=== PATIENT | male | born 1945 | race Caucasian/White ===

== ENCOUNTER 2017-10-09 20:58 | Observation (INO) | payer MEDICARE ==
[2017-10-09] MEDS ORDERED: Nitrostat 0.4 MG (ED) SL ONE ×2 (21:16→21:23)
[2017-10-09] MEDS ORDERED: Sodium Chloride 0.9% 1000 ML 1,000 ML IV STA (21:16)
[2017-10-09] MEDS ORDERED: Sodium Chloride 0.9% 1000 ML 1,000 ML ONE ×2 (21:19→21:23)
--- NOTE | 2017-10-09 21:19 | ERPHSYRPT ---
- History of Present Illness Time Seen by Provider: 10/09/17 21:08 Source: patient Exam Limitations: no limitations Physician History: FOR THE PAST 12 HOURS PT HAS HAD SHORTNESS OF AIR; DENIES CHEST PAIN, ABDOMINAL PAIN, NAUSEA, VOMITING, FEVER. Allergies/Adverse Reactions: No Known Drug Allergies Allergy (Verified 10/09/17 22:03) Home Medications: Budesonide/Formoterol Fumarate [Symbicort 160-4.5 Mcg Inhaler] 2 inh .ROUTE BID 10/09/17 [History] Clonazepam [Clonazepam] 1 mg PO TID PRN 10/09/17 [History] - Review of Systems Constitutional: No Fever Respiratory: Dyspnea Cardiac: No Chest Pain Abdominal/Gastrointestinal: No Abdominal Pain, No Nausea, No Vomiting All Other Systems: Reviewed and Negative - Nursing Vital Signs Nursing Vital Signs: Initial Vital Signs Temperature 99.2 F 10/09/17 21:28 Pulse Rate 130 H 10/09/17 21:28 Respiratory Rate 30 H 10/09/17 21:28 Blood Pressure 154/102 10/09/17 21:28 O2 Sat by Pulse Oximetry 88 L 10/09/17 21:28 Pain Scale Pain Intensity 0 - Physical Exam General Appearance: alert Eye Exam: PERRL/EOMI Ears, Nose, Throat Exam: pharyngeal erythema Neck Exam: normal inspection Respiratory Exam: diminished breath sounds, wheezing Cardiovascular/Chest Exam: tachycardia Abdominal/Gastrointestinal Exam: soft, normal bowel sounds Extremity Exam: no pedal edema Peripheral Pulses Exam: dorsalis-pedis (R): 2+, dorsalis-pedis (L): 2+ Neurologic Exam: alert, cooperative Skin Exam: warm, dry SpO2 Interpretation: hypoxic SpO2: 88 Oxygen Delivery: Room Air - Course Nursing assessment & vital signs reviewed: Yes EKG Interpreted by Me: RATE ([id number]), Sinus Tach, NORMAL AXIS, Non-specific ST Changes - Radiology Exams Chest X-ray Interpretation: Interpreted by me (INFILTRATE LEFT LUNG) - CT Exams Chest CT Interpretation: Tele-radiologist Report (NO CENTRAL PULMONARY EMBOLUS. PERIBRONCHIAL THICKENING AND CENTRILOBULAR NODULARITY IN THE SUPERIOR SEGMENT OF THE LEFT LOWER LOBE COMPATIVLE WITH INFECTIOUS/INFLAMMATORY PROCESS.) Ordered Tests: Active Orders 24 hr Category Date Time Status Assistant Store Leader STAT Care 10/09/17 21:17 Active Clean Catch Urine Specimen STAT Care 10/09/17 21:16 Active EKG-ER Only STAT Care 10/09/17 21:16 Active IV Insertion STAT Care 10/09/17 21:16 Active Oxygen-ED Only NASAL CANNULA 4 lpm Care 10/09/17 21:16 Active Pulse Oximetry (ED) STAT Care 10/09/17 21:16 Active CHEST 1 VIEW (PORTABLE) Stat Exams 10/09/17 21:17 Taken CHEST WITH CONTRAST [CT] Stat Exams 10/09/17 22:30 Taken ABG [ARTERIAL BLOOD GASES] Stat Lab 10/09/17 22:40 Completed AMYLASE Stat Lab 10/09/17 21:29 Completed ARTERIAL BLOOD GASES Urgent Lab 10/09/17 21:16 Completed BLOOD CULTURE Stat Lab 10/09/17 21:33 Received CBC W DIFF Stat Lab 10/09/17 21:29 Completed CMP Stat Lab 10/09/17 21:29 Completed CULTURE, THROAT Stat Lab 10/09/17 21:50 Received CULTURE,SPUTUM Stat Lab 10/09/17 22:33 Uncollected CULTURE,URINE Stat Lab 10/09/17 23:06 Received D-DIMER QUANTITATION Stat Lab 10/09/17 21:29 Completed LIPASE Stat Lab 10/09/17 21:29 Completed Lactic Acid Stat Lab 10/09/17 21:26 Completed MAGNESIUM Stat Lab 10/09/17 21:29 Completed Manual Differential NC Stat Lab 10/09/17 21:29 Completed NT PRO BNP Stat Lab 10/09/17 21:29 Completed STREP SCREEN-BETA A Stat Lab 10/09/17 21:50 Completed TROPONIN Q3H Lab 10/09/17 21:29 Completed TROPONIN Q3H Lab 10/10/17 01:03 Completed TROPONIN Q3H Lab 10/10/17 03:30 Ordered TROPONIN Q3H Lab 10/10/17 06:30 Ordered TROPONIN Q3H Lab 10/10/17 09:30 Ordered UA W/ MICROSCOPIC Stat Lab 10/09/17 23:06 Completed BiPap/CPAP Assessment STAT RT 10/09/17 21:30 Active Medication Summary Discontinued Medications Generic Name Dose Route Start Last Admin Trade Name Freq PRN Reason Stop Dose Admin Sodium Chloride 1,000 mls @ 999 mls/hr 10/09/17 21:16 10/09/17 21:21 Sodium Chloride 0.9% 1000 Ml IV 10/09/17 22:16 999 mls/hr .Q1H1M STA Administration Sodium Chloride Confirm 10/09/17 21:19 Sodium Chloride 0.9% 1000 Ml Administered 10/09/17 21:20 Dose 1,000 mls @ ud .ROUTE .STK-MED ONE Sodium Chloride Confirm 10/09/17 21:23 Sodium Chloride 0.9% 1000 Ml Administered 10/09/17 21:24 Dose 1,000 mls @ ud .ROUTE .STK-MED ONE Ceftriaxone Sodium/Dextrose 1 g in 50 mls @ 100 mls/hr 10/09/17 22:32 23:20 Rocephin 1 Gm-D5w 50 Ml Bag IV 10/09/17 23:01 100 mls/hr STAT STA Administration Azithromycin 500 mg in 250 mls @ 250 mls/hr 10/09/17 22:32 10/10/17 00:03 Zithromax 500 Mg/ 250 Ml Nacl Premix IV 10/09/17 23:31 250 mls/hr STAT STA Administration Lactated Ringer's 1,000 mls @ 999 mls/hr 10/09/17 23:16 10/10/17 00:03 Lactated Ringers IV 10/10/17 00:16 999 mls/hr .Q1H1M ONE Administration Azithromycin Confirm 10/09/17 23:14 Zithromax 500 Mg/ 250 Ml Nacl Premix Administered 10/09/17 23:15 Dose 500 mg in 250 mls @ ud IV .STK-MED ONE Ceftriaxone Sodium/Dextrose Confirm 10/09/17 23:14 Rocephin 1 Gm-D5w 50 Ml Bag Administered 10/09/17 23:15 Dose 1 g in 50 mls @ ud IV .STK-MED ONE Lactated Ringer's Confirm 10/10/17 00:01 Lactated Ringers Administered 10/10/17 00:02 Dose 1,000 mls @ ud IV .STK-MED ONE Levalbuterol HCl 1.25 mg 10/10/17 01:56 Xopenex 1.25 Mg/0.5 Ml Ud Nebule IH 10/10/17 01:57 STAT ONE Nitroglycerin 0.4 mg 10/09/17 21:16 10/09/17 21:26 Nitrostat 0.4 Mg (Ed) SL 10/09/17 21:17 0.4 mg STAT ONE Administration Nitroglycerin Confirm 10/09/17 21:23 Nitrostat 0.4 Mg (Ed) Administered 10/09/17 21:24 Dose 0.4 mg SL .STK-MED ONE Lab/Rad Data: Laboratory Result Diagrams 10/09/17 21:29 10/09/17 21:29 Laboratory Results 10/10/17 10/10/17 10/09/17 Range/Units 01:03 00:01 23:06 WBC (4.0-10.5) K/mm3 RBC (4.1-5.6) M/mm3 Hgb (12.5-18.0) gm/dl Hct (42-50) % MCV (78-100) fl MCH (26-32) pg MCHC (32-36) g/dl RDW (11.5-14.0) % Plt Count (150-450) K/mm3 MPV (6-9.5) fl Segmented Neutrophils (36.-66.) % Band Neutrophils (0.0-2.0) % Lymphocytes (Manual) (24-44) % Monocytes (Manual) (0.0-12.0) % Differential Comment Atypical Lymphocytes % Platelet Estimate (NORMAL) D-Dimer (0-500) ng/mL Puncture Site LEFT RADIAL pCO2 82 H* (35-45) mmHg pO2 183 H* (75-100) mmHg Base Excess 12.9 H (-2.0-2.0) O2 Saturation 94.8 (94-100) g/dF ABG pH 7.32 L (7.35-7.45) ABG HCO3 42.2 H* (22-28) ABG O2 Sat (Measured) 96.6 (95-100) % Wilmer Test YES A-a Gradient 71 a/A Ratio 0.72 Hemoglobin 11.9 Carboxyhemoglobin 1.3 (0.0-6.9) % THgb Methemoglobin 0.6 L (1.4-1.5) % Potassium 4.3 (3.5-5.1) Temperature 37.0 C POC O2 Flow Rate 50 % Sodium (137-145) mmol/L Chloride (98-107) mEq/L Carbon Dioxide (22-30) mmol/L Anion Gap (5-15) MEQ/L BUN (9-20) mg/dl Creatinine (0.66-1.25) mg/dl Estimated GFR ML/MIN Glucose (74-106) mg/dL Lactic Acid (0.4-2.0) Calcium (8.4-10.2) mg/dL Magnesium (1.6-2.3) mg/dL Total Bilirubin (0.2-1.3) mg/d? AST (17-59) U/L ALT (0-50) U/L Alkaline Phosphatase (38-126) U/L Troponin I < 0.012 (0.000-0.034) ng/ml NT-Pro-B Natriuret Pep (0-900) pg/ml Serum Total Protein (6.3-8.2) mg/dl Albumin (3.5-5.0) g/dl Amylase (30-110) U/L Lipase (23-300) U/L Ur Collection Type VOID Urine Color YELLOW (YELLOW) Urine Appearance CLEAR (CLEAR) Urine pH 5.0 (5-6) Ur Specific [place] 1.025 (1.005-1.025) Urine Protein NEGATIVE (Negative) Urine Ketones NEGATIVE (NEGATIVE) Urine Blood TRACE NON-HEM (0-5) Bakari/ul Urine Nitrite NEGATIVE (NEGATIVE) Urine Bilirubin NEGATIVE (NEGATIVE) Urine Urobilinogen NORMAL (0-1) mg/dL Ur Leukocyte Esterase NEGATIVE (NEGATIVE) Urine Microscopic RBC 5-10 (0-2) /HPF Urine Microscopic WBC 2-5 (0-5) /HPF Ur Epithelial Cells MODERATE (FEW) /HPF Urine Bacteria MODERATE (NEGATIVE) /HPF Urine Mucus MANY (NEGATIVE) /HPF Urine Culture Reflexed YES (NO) Urine Glucose NEGATIVE (NEGATIVE) mg/dL Influenza Type A Ag (NEGATIVE) Influenza Type B Ag (NEGATIVE) RSV (PCR) (Negative) Streptococcus Screen (Negative) Specimen Received 10/09/17 [id number] 10/09/17 10/09/17 10/09/17 Range/Units 21:50 21:50 21:29 WBC (4.0-10.5) K/mm3 RBC (4.1-5.6) M/mm3 Hgb (12.5-18.0) gm/dl Hct (42-50) % MCV (78-100) fl MCH (26-32) pg MCHC (32-36) g/dl RDW (11.5-14.0) % Plt Count (150-450) K/mm3 MPV (6-9.5) fl Segmented Neutrophils (36.-66.) % Band Neutrophils (0.0-2.0) % Lymphocytes (Manual) (24-44) % Monocytes (Manual) (0.0-12.0) % Differential Comment Atypical Lymphocytes % Platelet Estimate (NORMAL) D-Dimer (0-500) ng/mL Puncture Site pCO2 (35-45) mmHg pO2 (75-100) mmHg Base Excess (-2.0-2.0) O2 Saturation (94-100) g/dF ABG pH (7.35-7.45) ABG HCO3 (22-28) ABG O2 Sat (Measured) (95-100) % Wilmer Test A-a Gradient a/A Ratio Hemoglobin Carboxyhemoglobin (0.0-6.9) % THgb Methemoglobin (1.4-1.5) % Potassium (3.5-5.1) Temperature C POC O2 Flow Rate % Sodium (137-145) mmol/L Chloride (98-107) mEq/L Carbon Dioxide (22-30) mmol/L Anion Gap (5-15) MEQ/L BUN (9-20) mg/dl Creatinine (0.66-1.25) mg/dl Estimated GFR ML/MIN Glucose (74-106) mg/dL Lactic Acid (0.4-2.0) Calcium (8.4-10.2) mg/dL Magnesium (1.6-2.3) mg/dL Total Bilirubin (0.2-1.3) mg/d? AST (17-59) U/L ALT (0-50) U/L Alkaline Phosphatase (38-126) U/L Troponin I < 0.012 (0.000-0.034) ng/ml NT-Pro-B Natriuret Pep (0-900) pg/ml Serum Total Protein (6.3-8.2) mg/dl Albumin (3.5-5.0) g/dl Amylase (30-110) U/L Lipase (23-300) U/L Ur Collection Type Urine Color (YELLOW) Urine Appearance (CLEAR) Urine pH (5-6) Ur Specific [place] (1.005-1.025) Urine Protein (Negative) Urine Ketones (NEGATIVE) Urine Blood (0-5) Bakari/ul Urine Nitrite (NEGATIVE) Urine Bilirubin (NEGATIVE) Urine Urobilinogen (0-1) mg/dL Ur Leukocyte Esterase (NEGATIVE) Urine Microscopic RBC (0-2) /HPF Urine Microscopic WBC (0-5) /HPF Ur Epithelial Cells (FEW) /HPF Urine Bacteria (NEGATIVE) /HPF Urine Mucus (NEGATIVE) /HPF Urine Culture Reflexed (NO) Urine Glucose (NEGATIVE) mg/dL Influenza Type A Ag NEGATIVE (NEGATIVE) Influenza Type B Ag NEGATIVE (NEGATIVE) RSV (PCR) NEGATIVE (Negative) Streptococcus Screen NEGATIVE (Negative) Specimen Received 10/09/17 10/09/17 10/09/17 Range/Units 21:29 21:29 21:29 WBC 18.6 H (4.0-10.5) K/mm3 RBC 4.23 (4.1-5.6) M/mm3 Hgb 13.8 (12.5-18.0) gm/dl Hct 43.2 (42-50) % MCV 102.1 H (78-100) fl MCH 32.6 H (26-32) pg MCHC 31.9 L (32-36) g/dl RDW 14.1 H (11.5-14.0) % Plt Count 237 (150-450) K/mm3 MPV 10.6 H (6-9.5) fl Segmented Neutrophils 68 H (36.-66.) % Band Neutrophils 2 (0.0-2.0) % Lymphocytes (Manual) 5 L (24-44) % Monocytes (Manual) 13 H (0.0-12.0) % Differential Comment NORMAL Atypical Lymphocytes 12 % Platelet Estimate NORMAL (NORMAL) D-Dimer 852.44 H* (0-500) ng/mL Puncture Site pCO2 (35-45) mmHg pO2 (75-100) mmHg Base Excess (-2.0-2.0) O2 Saturation (94-100) g/dF ABG pH (7.35-7.45) ABG HCO3 (22-28) ABG O2 Sat (Measured) (95-100) % Wilmer Test A-a Gradient a/A Ratio Hemoglobin Carboxyhemoglobin (0.0-6.9) % THgb Methemoglobin (1.4-1.5) % Potassium 4.2 (3.5-5.1) Temperature C POC O2 Flow Rate % Sodium 143 (137-145) mmol/L Chloride 96 L (98-107) mEq/L Carbon Dioxide 38 H (22-30) mmol/L Anion Gap 13.2 (5-15) MEQ/L BUN 18 (9-20) mg/dl Creatinine 0.70 (0.66-1.25) mg/dl Estimated GFR > 60 ML/MIN Glucose 101 (74-106) mg/dL Lactic Acid (0.4-2.0) Calcium 9.6 (8.4-10.2) mg/dL Magnesium 2.1 (1.6-2.3) mg/dL Total Bilirubin 0.40 (0.2-1.3) mg/d? AST 18 (17-59) U/L ALT 19 (0-50) U/L Alkaline Phosphatase 83 (38-126) U/L Troponin I (0.000-0.034) ng/ml NT-Pro-B Natriuret Pep 68.3 (0-900) pg/ml Serum Total Protein 6.9 (6.3-8.2) mg/dl Albumin 3.9 (3.5-5.0) g/dl Amylase 55 (30-110) U/L Lipase 20 L (23-300) U/L Ur Collection Type Urine Color (YELLOW) Urine Appearance (CLEAR) Urine pH (5-6) Ur Specific [place] (1.005-1.025) Urine Protein (Negative) Urine Ketones (NEGATIVE) Urine Blood (0-5) Bakari/ul Urine Nitrite (NEGATIVE) Urine Bilirubin (NEGATIVE) Urine Urobilinogen (0-1) mg/dL Ur Leukocyte Esterase (NEGATIVE) Urine Microscopic RBC (0-2) /HPF Urine Microscopic WBC (0-5) /HPF Ur Epithelial Cells (FEW) /HPF Urine Bacteria (NEGATIVE) /HPF Urine Mucus (NEGATIVE) /HPF Urine Culture Reflexed (NO) Urine Glucose (NEGATIVE) mg/dL Influenza Type A Ag (NEGATIVE) Influenza Type B Ag (NEGATIVE) RSV (PCR) (Negative) Streptococcus Screen (Negative) Specimen Received 10/09/17 10/09/17 Range/Units 21:26 21:16 WBC (4.0-10.5) K/mm3 RBC (4.1-5.6) M/mm3 Hgb (12.5-18.0) gm/dl Hct (42-50) % MCV (78-100) fl MCH (26-32) pg MCHC (32-36) g/dl RDW (11.5-14.0) % Plt Count (150-450) K/mm3 MPV (6-9.5) fl Segmented Neutrophils (36.-66.) % Band Neutrophils (0.0-2.0) % Lymphocytes (Manual) (24-44) % Monocytes (Manual) (0.0-12.0) % Differential Comment Atypical Lymphocytes % Platelet Estimate (NORMAL) D-Dimer (0-500) ng/mL Puncture Site RIGHT RADIAL pCO2 88 H* (35-45) mmHg pO2 84 (75-100) mmHg Base Excess 14.0 H (-2.0-2.0) O2 Saturation 92.8 L (94-100) g/dF ABG pH 7.31 L (7.35-7.45) ABG HCO3 44.3 H* (22-28) ABG O2 Sat (Measured) 95.5 (95-100) % Wilmer Test YES A-a Gradient 91 a/A Ratio 0.48 Hemoglobin 13.0 Carboxyhemoglobin 2.4 (0.0-6.9) % THgb Methemoglobin 0.4 L (1.4-1.5) % Potassium 4.0 (3.5-5.1) Temperature 37.0 C POC O2 Flow Rate 40 % Sodium (137-145) mmol/L Chloride (98-107) mEq/L Carbon Dioxide (22-30) mmol/L Anion Gap (5-15) MEQ/L BUN (9-20) mg/dl Creatinine (0.66-1.25) mg/dl Estimated GFR ML/MIN Glucose (74-106) mg/dL Lactic Acid 0.6 (0.4-2.0) Calcium (8.4-10.2) mg/dL Magnesium (1.6-2.3) mg/dL Total Bilirubin (0.2-1.3) mg/d? AST (17-59) U/L ALT (0-50) U/L Alkaline Phosphatase (38-126) U/L Troponin I (0.000-0.034) ng/ml NT-Pro-B Natriuret Pep (0-900) pg/ml Serum Total Protein (6.3-8.2) mg/dl Albumin (3.5-5.0) g/dl Amylase (30-110) U/L Lipase (23-300) U/L Ur Collection Type Urine Color (YELLOW) Urine Appearance (CLEAR) Urine pH (5-6) Ur Specific [place] (1.005-1.025) Urine Protein (Negative) Urine Ketones (NEGATIVE) Urine Blood (0-5) Bakari/ul Urine Nitrite (NEGATIVE) Urine Bilirubin (NEGATIVE) Urine Urobilinogen (0-1) mg/dL Ur Leukocyte Esterase (NEGATIVE) Urine Microscopic RBC (0-2) /HPF Urine Microscopic WBC (0-5) /HPF Ur Epithelial Cells (FEW) /HPF Urine Bacteria (NEGATIVE) /HPF Urine Mucus (NEGATIVE) /HPF Urine Culture Reflexed (NO) Urine Glucose (NEGATIVE) mg/dL Influenza Type A Ag (NEGATIVE) Influenza Type B Ag (NEGATIVE) RSV (PCR) (Negative) Streptococcus Screen (Negative) Specimen Received - Progress Discussed with Dr.: Other (SPOKE WITH DR HERRERA([id number]) - OBS ICU.) - Departure Time of Disposition: 02:10 Departure Disposition: Observation Clinical Impression: ACUTE RESPIRATORY FAILURE, LEFT LOWER LOBE PNEUMONIA, UTI Condition: Stable Critical Care Time: Yes Critical Care Time(excluding separately billable procedures): 30-74 minutes Referrals: MADDIE SILVA MD [Primary Care Provider] -
[2017-10-09 21:36] LABS: A-aADO2 91; ARTERIAL BLD GAS O2 SATURATION 95.5 % (95-100); ARTERIAL BLOOD GAS FIO2 40 %; ARTERIAL BLOOD GAS PO2 84 mmHg (75-100); ARTERIAL BLOOD GAS pH 7.31 (7.35-7.45); CARBOXYHEMOGLOBIN 2.4 % THgb (0.0-6.9); HCO3- 44.3 (22-28); HGB O2 SAT 92.8 g/dF (94-100); Methhemoglobin 0.4 % (1.4-1.5); paO2 pAO1 0.48
[2017-10-09 21:37] LABS: ABG SITE RIGHT RADIAL; ALLEN TEST OK? YES; ARTERIAL BLOOD GAS PCO2 88 mmHg (35-45)
[2017-10-09 22:00] LABS: Hematocrit 43.2 % (42-50); Hemoglobin 13.8 gm/dl (12.5-18.0); Mean Cell Volume 102.1 fl (78-100); Mean Corpuscular Hemoglobin 32.6 pg (26-32); Mean Corpuscular Hgb Concent. 31.9 g/dl (32-36); Mean Platelet Volume 10.6 fl (6-9.5); Platelet Count 237 K/mm3 (150-450); Red Blood Count 4.23 M/mm3 (4.1-5.6); Red Cell Distribution Width 14.1 % (11.5-14.0); White Blood Count 18.6 K/mm3 (4.0-10.5)
[2017-10-09 22:04] LABS: ALBUMIN 3.9 g/dl (3.5-5.0); ALKALINE PHOSPHATASE 83 U/L (38-126); AMYLASE 55 U/L (30-110); BLOOD UREA NITROGEN 18 mg/dl (9-20); CHLORIDE 96 mEq/L (98-107); Calcium 9.6 mg/dL (8.4-10.2); Glucose 101 mg/dL (74-106); LIPASE 20 U/L (23-300); Potassium 4.2 mmol/L (3.5-5.1); SGOT/AST 18 U/L (17-59); SGPT/ALT 19 U/L (0-50); SODIUM 143 mmol/L (137-145); Total Protein 6.9 mg/dl (6.3-8.2)
[2017-10-09 22:10] LABS: Carbon Dioxide 38 mmol/L (22-30)
[2017-10-09 22:13] LABS: NT PRO BNP 68.3 pg/ml (0-900)
[2017-10-09 22:30] LABS: ANION GAP 13.2 MEQ/L (5-15)
[2017-10-09] MEDS ORDERED: Zithromax 500 MG/ 250 ML NaCl Premix 500 MG/250 ML IVPB IV STA (22:32)
[2017-10-09] MEDS ORDERED: ROCEPHIN 1 Gm-D5w 50 ml Bag** 1 G/50 ML IVPB IV STA (22:32)
[2017-10-09 22:35] LABS: INFLUENZA A NEGATIVE (NEGATIVE); INFLUENZA B NEGATIVE (NEGATIVE); RESPIRATORY SYNCTIAL VIRUS NEGATIVE (Negative)
[2017-10-09 23:02] LABS: ATYPICAL LYMPHS 12 %; BAND 2 % (0.0-2.0); Lymphocytes 5 % (24-44); Monocyte 13 % (0.0-12.0); Neutrophils 68 % (36.-66.); Total Cells Counted 100
[2017-10-09 23:03] LABS: Platelet Estimate NORMAL (NORMAL)
[2017-10-09] MEDS ORDERED: ROCEPHIN 1 Gm-D5w 50 ml Bag** 1 G/50 ML IVPB IV ONE (23:14)
[2017-10-09] MEDS ORDERED: Zithromax 500 MG/ 250 ML NaCl Premix 500 MG/250 ML IVPB IV ONE (23:14)
[2017-10-09] MEDS ORDERED: Lactated Ringers 1,000 ML IV ONE (23:16)
[2017-10-09 23:41] LABS: Appearance CLEAR (CLEAR); Bilirubin NEGATIVE (NEGATIVE); Blood TRACE NON-HEM Ery/ul (0-5); Glucose NEGATIVE (NEGATIVE); Ketones NEGATIVE (NEGATIVE); Leukocyte Esterase NEGATIVE (NEGATIVE); Nitrite NEGATIVE (NEGATIVE); Protein,Urine Dip NEGATIVE (Negative); Specific Gravity 1.025 (1.005-1.025); Urobilinogen NORMAL mg/dL (0-1)
[2017-10-09 23:42] LABS: Bacteria MODERATE /HPF (NEGATIVE); Epithelial Cells MODERATE /HPF (FEW); Mucus MANY /HPF (NEGATIVE)
[2017-10-10] MEDS ORDERED: Lactated Ringers 1,000 ML IV ONE (00:01)
[2017-10-10 00:12] LABS: A-aADO2 71; ABG HEMOGLOBIN 11.9; ABG POTASSIUM 4.3 (3.5-5.1); ARTERIAL BLD GAS O2 SATURATION 96.6 % (95-100); ARTERIAL BLOOD GAS BASE EXCESS 12.9 (-2.0-2.0); ARTERIAL BLOOD GAS FIO2 50 %; ARTERIAL BLOOD GAS PCO2 82 mmHg (35-45); ARTERIAL BLOOD GAS PO2 183 mmHg (75-100); ARTERIAL BLOOD GAS pH 7.32 (7.35-7.45); CARBOXYHEMOGLOBIN 1.3 % THgb (0.0-6.9); HCO3- 42.2 (22-28); HGB O2 SAT 94.8 g/dF (94-100); Methhemoglobin 0.6 % (1.4-1.5); paO2 pAO1 0.72
[2017-10-10 00:13] LABS: ABG SITE LEFT RADIAL; ALLEN TEST OK? YES
[2017-10-10] MEDS ORDERED: Xopenex 1.25 MG/0.5 ML UD NEBULE IH ONE ×2 (01:56→02:11)
[2017-10-10] MEDS ORDERED: Sodium Chloride 3 ML UD NEBULES IH ONE (02:11)
[2017-10-10] MEDS ORDERED: Nitrostat 0.4 MG Tablet SL PRN (02:59)
[2017-10-10] MEDS ORDERED: PROVENTIL 2.5 MG/3 ML NEB IH PRN (02:59)
[2017-10-10] MEDS ORDERED: TYLENOL 325 MG PO PRN (02:59)
[2017-10-10] MEDS ORDERED: Phenergan 25 MG INJ IV PRN (02:59)
[2017-10-10] MEDS: Sodium Chloride 0.9% 1000 ML 1,000 ML IV SCH ×2 (05:26→13:36)
[2017-10-10] MEDS: MORPHINE SULFATE 2 MG INJ IV PRN (05:26)
[2017-10-10] MEDS: DUONEB 0.5-3 MG/3 ml Neb IH SCH ×6 (06:40→23:50)
[2017-10-10] MEDS ORDERED: DUONEB 0.5-3 MG/3 ml Neb IH ONE (06:42)
[2017-10-10 06:44] LABS: BASOPHIL % 0.2 % (0.0-0.4); Basophil (Absolute #) 0.03 (0-0.4); Eosinophil % 0.3 % (0.00-5.0); Eosinophil (Absolute #) 0.05 (0-0.5); Granulocyte Absolute (ANC) 11.29 (1.4-6.9); Granulocytes % 69.2 % (36.0-66.0); Hematocrit 38.5 % (42-50); Hemoglobin 11.9 gm/dl (12.5-18.0); Lymphocyte (Absolute #) 3.11 (1.0-4.6); Lymphocytes % 19.1 % (24.0-44.0); Mean Cell Volume 104.9 fl (78-100); Mean Corpuscular Hemoglobin 32.4 pg (26-32); Mean Corpuscular Hgb Concent. 30.9 g/dl (32-36); Mean Platelet Volume 10.3 fl (6-9.5); Monocyte (Absolute #) 1.83 (0.0-1.3); Monocytes % 11.2 % (0.0-12.0); Platelet Count 195 K/mm3 (150-450); Red Blood Count 3.67 M/mm3 (4.1-5.6); Red Cell Distribution Width 14.2 % (11.5-14.0); White Blood Count 16.3 K/mm3 (4.0-10.5)
[2017-10-10 07:29] LABS: Slide Review 1 YES
--- NOTE | 2017-10-10 09:00 | XRAY ---
Indication: Short of breath. Comparison: None Portable chest demonstrates diffuse pulmonary emphysema with subtle asymmetric left perihilar and right lower lobe interstitial opacities probable normal parenchyma. Superimposed pneumonia not completely excluded. Heart is not enlarged. Bony thorax intact with mild osteopenia and degenerative changes.
--- NOTE | 2017-10-10 09:25 | XRAY ---
Indication: Short of breath. Elevated d-dimer. History COPD. Multiple contiguous axial images obtained through the chest using 80 cc Isovue 370 contrast and PE protocol. Comparison: None There is satisfactory opacification of the pulmonary arteries. However moderate respiration artifact limits evaluation of the more distal branches. No central pulmonary embolus. Heart is not enlarged. Aorta mildly arteriosclerotic without aneurysm/dissection. Tiny subcarinal calcified node. No pathologic mediastinal/hilar lymphadenopathy. Examination of the lung parenchyma demonstrates diffuse pulmonary emphysema and right lower lobe calcified granuloma. Superior segment of the left lower lobe demonstrates small focus of interstitial alveolar opacity. No consolidation or large effusion. Bony thorax intact with mild degenerative changes throughout the spine. 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 Impression: 1. Pulmonary embolus evaluation limited by respiration artifact. No central pulmonary embolus. 2. Left lower lobe interstitial alveolar opacity favoring pneumonitis. 3. Diffuse pulmonary emphysema and evidence for old granulomatous disease. 4. 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 Gallbladder sonogram may yield further information if clinically warranted. Comment: Preliminary interpretation was made by [facility]. Gallbladder finding not reported is incidental. CT DI 11.12
[2017-10-10] MEDS: Advair Hfa 230/21 Mcg COMMON CANISTER IH SCH ×2 (10:52→19:09)
--- NOTE | 2017-10-10 13:12 | PCM.HP ---
History of Present Illness - Chief Complaint Chief Complaint: Acute Resp failure,LLL pneumonia, UTI History of Present Illness: is a 72 year old male.came to ER with severe shortness of breath. c/o fever, - Review of Systems Constitutional: No Fever, No Chills Eyes: No Symptoms Ears, Nose, & Throat: No Symptoms Respiratory: Cough, Orthopnea, Short Of Breath Cardiac: No Chest Pain, No Edema, No Syncope Abdominal/Gastrointestinal: No Abdominal Pain, No Nausea, No Vomiting, No Diarrhea Genitourinary Symptoms: No Dysuria Musculoskeletal: No Back Pain, No Neck Pain Skin: No Rash Neurological: No Dizziness, No Focal Weakness, No Sensory Changes Psychological: No Symptoms Endocrine: No Symptoms Hematologic/Lymphatic: No Symptoms Immunological/Allergic: No Symptoms Medications & Allergies Home Medications: Home Medication List Budesonide/Formoterol Fumarate [Symbicort 160-4.5 Mcg Inhaler] 2 inh .ROUTE BID 10/09/17 [History Confirmed 10/09/17] Clonazepam [Clonazepam] 1 mg PO TID PRN 10/09/17 [History Confirmed 10/09/17] Allergies/Adverse Reactions: Allergies Allergy/AdvReac Type Severity Reaction Status Date / Time No Known Drug Allergies Allergy Verified 10/09/17 22:03 - Past Medical History Past Medical History: Yes Neurological History: No Pertinent History ENT History: No Pertinent History Cardiac History: No Pertinent History Respiratory History: Bronchitis, Emphysema Musculoskelatal History: Other GI Medical History: No Pertinent History History: No Pertinent History Pyscho-Social History: Panic Disorder Male Reproductive Disorders: No Pertinent History Comment: Lower back surgery- 19 yrs ago in [facility] - Past Surgical History Past Surgical History: Yes Neuro Surgical History: No Pertinent History Cardiac History: No Pertinent History Respiratory Surgery: No Pertinent History GI Surgical History: No Pertinent History Genitourinary Surgical Hx: No Pertinent History Musculskeletal Surgical Hx: No Pertinent History Male Surgical History: No Pertinent History Other Surgical History: back surgery- 19 yrs ago in [facility] - Social History Smoking Status: Unknown if ever smoked How long have you smoked: yrs Exposure to second hand smoke: Yes Alcohol: None Drug Use: none - Physical Exam Vital Signs: Vital Signs - 24 hr Temp Pulse Resp BP Pulse Ox 10/10/17 12:00 97.7 F 102 H 30 H 154/79 97 10/10/17 10:36 100 H 32 H 99 10/10/17 08:18 109 H 24 99 10/10/17 08:00 98.0 F 109 H 24 137/77 99 10/10/17 05:27 109 H 22 99 10/10/17 04:00 107 H 10/10/17 03:51 98.5 F 107 H 32 H 138/72 98 10/10/17 02:59 98 10/10/17 02:30 116 H 27 H 112/71 97 10/10/17 02:28 119 H 28 H 99 10/10/17 02:10 88 L 10/10/17 00:50 113 H 25 H 128/76 98 10/10/17 00:14 115 H 22 141/78 98 10/09/17 22:50 122 H 10/09/17 22:40 122 H 22 98 10/09/17 21:50 120 H 20 137/72 94 L 10/09/17 21:44 88 L 10/09/17 21:28 99.2 F 130 H 30 H 154/102 88 L Oxygen-Last 24 hours O2 Percentage 5 Liters = 40% O2 Percentage 40% O2 Percentage 50% O2 Percentage 5 Liters = 40% O2 Percentage 6 Liters = 44% O2 Percentage 5 Liters = 40% O2 Percentage 4 Liters = 36% General Appearance: no apparent distress, alert Neurologic Exam: alert, oriented x 3, cooperative, normal mood/affect, nml cerebellar function, nml station & gait, sensation nml, No motor deficits Eye Exam: PERRL/EOMI, eyes nml inspection Ears, Nose, Throat Exam: normal ENT inspection, TMs normal, pharynx normal, moist mucous membranes Neck Exam: normal inspection, non-tender, supple, full range of motion Respiratory Exam: respiratory distress, diminished breath sounds, prolonged expirations, crackles/rales, rhonchi, wheezing Cardiovascular Exam: regular rate/rhythm, normal heart sounds, normal peripheral pulses Gastrointestinal/Abdomen Exam: soft, normal bowel sounds, No tenderness, No mass Back Exam: normal inspection, normal range of motion, No CVA tenderness, No vertebral tenderness Extremity Exam: normal inspection, normal range of motion, pelvis stable Skin Exam: normal color, warm, dry, No rash Lymphatic Exam: No adenopathy Results - Labs Lab/Micro Results: Lab Results-Last 24 Hours 10/10/17 10/10/17 10/10/17 Range/Units 04:00 06:32 06:32 WBC 16.3 H (4.0-10.5) K/mm3 RBC 3.67 L (4.1-5.6) M/mm3 Hgb 11.9 L (12.5-18.0) gm/dl Hct 38.5 L (42-50) % MCV 104.9 H (78-100) fl MCH 32.4 H (26-32) pg MCHC 30.9 L (32-36) g/dl RDW 14.2 H (11.5-14.0) % Plt Count 195 (150-450) K/mm3 MPV 10.3 H (6-9.5) fl Gran % 69.2 H (36.0-66.0) % Lymphocytes % 19.1 L (24.0-44.0) % Monocytes % 11.2 (0.0-12.0) % Eosinophils % 0.3 (0.00-5.0) % Basophils % 0.2 (0.0-0.4) % Basophils # 0.03 (0-0.4) Troponin I < 0.012 < 0.012 (0.000-0.034) ng/ml Slides for Path Review YES 10/10/17 Range/Units 09:31 WBC (4.0-10.5) K/mm3 RBC (4.1-5.6) M/mm3 Hgb (12.5-18.0) gm/dl Hct (42-50) % MCV (78-100) fl MCH (26-32) pg MCHC (32-36) g/dl RDW (11.5-14.0) % Plt Count (150-450) K/mm3 MPV (6-9.5) fl Gran % (36.0-66.0) % Lymphocytes % (24.0-44.0) % Monocytes % (0.0-12.0) % Eosinophils % (0.00-5.0) % Basophils % (0.0-0.4) % Basophils # (0-0.4) Troponin I < 0.012 (0.000-0.034) ng/ml Slides for Path Review - Other Procedures and Tests Respiratory Therapy 10/10/17 07:00 Respiratory MDI BID neb [Respiratory Nebulizer] Q4H
[2017-10-10 13:17] LABS: ALBUMIN 3.3 g/dL (3.5-5.0); ALKALINE PHOSPHATASE 70 U/L (38-126); ANION GAP 8.5 MEQ/L (5-15); BLOOD UREA NITROGEN 13 mg/dL (9-20); CHLORIDE 100 mmol/L (98-107); Calcium 8.9 mg/dL (8.4-10.2); Carbon Dioxide 37 mmol/L (22-30); Creatinine 1 0.61 mg/dL (0.66-1.25); Glucose 94 mg/dL (74-106); Potassium 4.3 mmol/L (3.5-5.1); SGOT/AST 19 U/L (17-59); SGPT/ALT 18 U/L (0-50); SODIUM 141 mmol/L (137-145)
[2017-10-10 13:24] LABS: PREALBUMIN 17.91 mg/dL (17.6-36.0)
[2017-10-10] MEDS: ENOXAPARIN SODIUM SQ SCH (13:36)
[2017-10-10] MEDS: Klonopin 0.5 MG PO PRN ×2 (13:36→21:06)
[2017-10-10] MEDS: solu-MEDROL 125 MG IV SCH ×2 (13:36→21:07)
[2017-10-10] MEDS: ROCEPHIN 1 Gm-D5w 50 ml Bag** 1 G/50 ML IVPB IV SCH (21:00)
[2017-10-10] MEDS: Zithromax 500 MG/ 250 ML NaCl Premix 500 MG/250 ML IVPB IV SCH (21:33)
[2017-10-11] MEDS: Sodium Chloride 0.9% 1000 ML 1,000 ML IV SCH ×2 (03:15→15:35)
[2017-10-11] MEDS: DUONEB 0.5-3 MG/3 ml Neb IH SCH ×6 (03:28→22:38)
[2017-10-11] MEDS: Advair Hfa 230/21 Mcg COMMON CANISTER IH SCH ×2 (06:53→18:10)
[2017-10-11] MEDS: ENOXAPARIN SODIUM SQ SCH (09:16)
[2017-10-11] MEDS: solu-MEDROL 125 MG IV SCH ×2 (09:16→21:03)
[2017-10-11] MEDS: Klonopin 0.5 MG PO PRN ×2 (11:06→20:55)
--- NOTE | 2017-10-11 12:07 | PCM.NOTE ---
Date and Time: 10/11/17 1205 Subjective Assessment: still c/o shortness of breath. - Review of Systems Constitutional: No Fever, No Chills Eyes: No Symptoms Ears, Nose, & Throat: No Symptoms Respiratory: No Cough, No Short Of Breath Cardiac: No Chest Pain, No Edema, No Syncope Abdominal/Gastrointestinal: No Abdominal Pain, No Nausea, No Vomiting, No Diarrhea Genitourinary Symptoms: No Dysuria Musculoskeletal: No Back Pain, No Neck Pain Skin: No Rash Neurological: No Dizziness, No Focal Weakness, No Sensory Changes Psychological: No Symptoms Endocrine: No Symptoms Hematologic/Lymphatic: No Symptoms Immunological/Allergic: No Symptoms Objective Exam General Appearance: no apparent distress, alert Neurologic Exam: alert, oriented x 3, cooperative, normal mood/affect, nml cerebellar function, sensation nml, No motor deficits Skin Exam: normal color, warm, dry Eye Exam: PERRL, EOMI, eyes nml inspection Ears, Nose, Throat Exam: normal ENT inspection, pharynx normal, moist mucous membranes Neck Exam: normal inspection, non-tender, supple, full range of motion Respiratory Exam: diminished breath sounds, prolonged expirations, crackles/ rales, rhonchi, No respiratory distress Cardiovascular Exam: regular rate/rhythm, normal heart sounds Gastrointestinal/Abdomen Exam: soft, No tenderness, No mass Extremity Exam: normal inspection, normal range of motion Back Exam: normal inspection, normal range of motion, No CVA tenderness, No vertebral tenderness Male Genitalia Exam: deferred Rectal Exam: deferred OBJECTIVE DATA Vital Signs: Vital Signs - 24 hr Temp Pulse Resp BP Pulse Ox 10/11/17 09:00 90 17 145/85 99 10/11/17 08:00 100 H 20 10/11/17 07:00 91 H 24 99 10/11/17 05:00 98.5 F 83 20 143/72 99 10/11/17 04:00 84 20 10/11/17 03:28 90 25 H 96 10/11/17 00:26 98.7 F 88 19 128/73 99 10/11/17 00:01 86 10/11/17 00:00 19 10/10/17 23:50 88 19 99 10/10/17 19:59 98.5 F 88 21 143/79 99 10/10/17 19:54 88 21 10/10/17 19:09 82 18 100 10/10/17 17:19 99 H 21 99 10/10/17 16:19 101 H 18 97 10/10/17 16:00 98.5 F 92 H 19 124/69 98 10/10/17 15:59 92 H 10/10/17 15:57 26 H 10/10/17 14:37 96 H 36 H 97 Oxygen-Last 24 hours O2 Percentage 40% O2 Percentage 40% O2 Percentage 40% O2 Percentage 5 Liters = 40% Pain Assessment - Last Documented Pain Intensity 0 Pain Scale Used 0-10 Pain Scale Intake and Output: Intake & Output 10/09/17 10/10/17 10/11/17 10/12/17 11:59 11:59 11:59 11:59 Intake Total 45 2765 Output Total 100 1250 Balance -55 1515 Weight 59.1 kg Lab Results: Lab Results-Last 24 Hours 10/10/17 Range/Units 06:32 Sodium 141 (137-145) mmol/L Potassium 4.3 (3.5-5.1) mmol/L Chloride 100 (98-107) mmol/L Carbon Dioxide 37 H (22-30) mmol/L Anion Gap 8.5 (5-15) MEQ/L BUN 13 (9-20) mg/dL Creatinine 0.61 L (0.66-1.25) mg/dL Estimated GFR > 60 ML/MIN Glucose 94 (74-106) mg/dL Calcium 8.9 (8.4-10.2) mg/dL Total Bilirubin 0.20 (0.2-1.3) mg/dL AST 19 (17-59) U/L ALT 18 (0-50) U/L Alkaline Phosphatase 70 (38-126) U/L Serum Total Protein 6.0 L (6.3-8.2) gm/dL Albumin 3.3 L (3.5-5.0) g/dL Prealbumin 17.91 (17.6-36.0) mg/dL Multi-Disciplinary Progress Notes: Multi-Disciplinary Progress Notes 10/11/17 10:54 Case Management Note by Ness Rodríguez Talked with pt's regarding needs at time of discharge. Patient lives at home with spouse and plans to return there at discharge. Important message from Medicare signed by pt's .Forms placed on chart. Will continue to follow for all Discharge needs. Initialized on 10/11/17 10:54 - END OF NOTE 10/10/17 13:10 (created 10/10/17 14:32) Case Management Note by Jessenia Del Toro DR. ROUNDED AND EVALUATED, DISCUSSED PLAN OF CARE WITH PT AND . VERBALIZED UNDERSTANDING AND IN AGREEMENT. Initialized on 10/10/17 14:32 - END OF NOTE Assessment/Plan (1) COPD exacerbation Current Visit: Yes Status: Acute Assessment & Plan: Chief Complaint Diagnosis Acute Resp failure,LLL pneumonia, UTI Allergies Allergy/AdvReac Type Severity Reaction Status Date / Time No Known Drug Allergies Allergy Verified 10/09/17 22:03 Vital Signs (Last 24 hours) Temp Pulse Resp BP Pulse Ox 10/11/17 09:00 90 17 145/85 99 10/11/17 08:00 100 H 20 10/11/17 07:00 91 H 24 99 10/11/17 05:00 98.5 F 83 20 143/72 99 10/11/17 04:00 84 20 10/11/17 03:28 90 25 H 96 10/11/17 00:26 98.7 F 88 19 128/73 99 10/11/17 00:01 86 10/11/17 00:00 19 10/10/17 23:50 88 19 99 10/10/17 19:59 98.5 F 88 21 143/79 99 10/10/17 19:54 88 21 10/10/17 19:09 82 18 100 10/10/17 17:19 99 H 21 99 10/10/17 16:19 101 H 18 97 10/10/17 16:00 98.5 F 92 H 19 124/69 98 10/10/17 15:59 92 H 10/10/17 15:57 26 H 10/10/17 14:37 96 H 36 H 97 Home Medications Medication Instructions Recorded Confirmed Last Taken Type Budesonide/Formoterol Fumarate 2 inh .ROUTE BID 10/09/17 10/09/17 10/09/17 History [Symbicort 160-4.5 Mcg Inhaler] Clonazepam [Clonazepam] 1 mg PO TID PRN 10/09/17 10/09/17 10/09/17 History Current Medications Generic Name Dose Route Start Last Admin Trade Name Freq PRN Reason Stop Dose Admin Acetaminophen 650 mg 10/10/17 02:59 Tylenol 325 Mg PO 11/09/17 02:58 Q4H PRN PRN PAIN AND/OR FEVER Albuterol Sulfate 2.5 mg 10/10/17 02:59 Proventil 2.5 Mg/3 Ml Neb IH 11/09/17 02:58 Q2H PRN PRN SHORTNESS OF BREATH/WHEEZING Albuterol/Ipratropium 3 ml 10/10/17 03:00 10/11/17 06:52 Duoneb 0.5-3 Mg/3 Ml Neb IH 11/09/17 02:59 3 ml Q4HRT KELSEA Administration Clonazepam 1 mg 10/10/17 13:29 10/11/17 11:06 Klonopin 0.5 Mg PO 11/09/17 13:28 1 mg TID PRN PRN Administration ANXIETY Enoxaparin Sodium 40 mg 10/10/17 14:00 10/11/17 09:16 Enoxaparin Sodium SQ 11/09/17 13:59 40 mg DAILY KELSEA Administration Azithromycin 500 mg in 250 mls @ 250 mls/hr 10/10/17 22:00 10/10/17 21:33 Zithromax 500 Mg/ 250 Ml Nacl Premix IV 11/09/17 21:59 250 mls/hr Q24H22 KELSEA Administration Ceftriaxone Sodium/Dextrose 1 g in 50 mls @ 100 mls/hr 10/10/17 22:00 21:00 Rocephin 1 Gm-D5w 50 Ml Bag IV 11/09/17 21:59 100 mls/hr Q24H22 KELSEA Administration Sodium Chloride 1,000 mls @ 100 mls/hr 10/10/17 02:59 10/11/17 03:15 Sodium Chloride 0.9% 1000 Ml IV 11/09/17 02:58 100 mls/hr .Q10H KELSEA Administration Methylprednisolone Sodium Succinate 80 mg 10/10/17 15:00 10/11/17 09:16 Solu-Medrol 125 Mg IV 11/09/17 14:59 80 mg TID KELSEA Administration Morphine Sulfate 2 mg 10/10/17 02:59 10/10/17 05:26 Morphine Sulfate 2 Mg Inj IV 10/15/17 02:58 2 mg Q4H PRN PRN Administration PAIN Nitroglycerin 0.4 mg 10/10/17 02:59 Nitrostat 0.4 Mg Tablet SL 11/09/17 02:58 Q5MIN PRN MR X 3 PRN CHEST PAIN Promethazine HCl 12.5 mg 10/10/17 02:59 Phenergan 25 Mg Inj IV 11/09/17 02:58 Q6H PRN PRN NAUSEA/VOMITING Fluticasone/Salmeterol 2 puff 10/10/17 07:00 10/11/17 06:53 Advair Hfa 230/21 Mcg Common Canister* IH 11/09/17 06:59 2 puff BIDRT KELSEA Administration Discontinued Medications Generic Name Dose Route Start Last Admin Trade Name Freq PRN Reason Stop Dose Admin Albuterol/Ipratropium Confirm 10/10/17 06:42 Duoneb 0.5-3 Mg/3 Ml Neb Administered 10/10/17 06:43 Dose 3 ml IH .STK-MED ONE Sodium Chloride 1,000 mls @ 999 mls/hr 10/09/17 21:16 10/09/17 21:21 Sodium Chloride 0.9% 1000 Ml IV 10/09/17 22:16 999 mls/hr .Q1H1M STA Administration Sodium Chloride Confirm 10/09/17 21:19 Sodium Chloride 0.9% 1000 Ml Administered 10/09/17 21:20 Dose 1,000 mls @ ud .ROUTE .STK-MED ONE Sodium Chloride Confirm 10/09/17 21:23 Sodium Chloride 0.9% 1000 Ml Administered 10/09/17 21:24 Dose 1,000 mls @ ud .ROUTE .STK-MED ONE Ceftriaxone Sodium/Dextrose 1 g in 50 mls @ 100 mls/hr 10/09/17 22:32 23:20 Rocephin 1 Gm-D5w 50 Ml Bag IV 10/09/17 23:01 100 mls/hr STAT STA Administration Azithromycin 500 mg in 250 mls @ 250 mls/hr 10/09/17 22:32 10/10/17 00:03 Zithromax 500 Mg/ 250 Ml Nacl Premix IV 10/09/17 23:31 250 mls/hr STAT STA Administration Lactated Ringer's 1,000 mls @ 999 mls/hr 10/09/17 23:16 10/10/17 00:03 Lactated Ringers IV 10/10/17 00:16 999 mls/hr .Q1H1M ONE Administration Azithromycin Confirm 10/09/17 23:14 Zithromax 500 Mg/ 250 Ml Nacl Premix Administered 10/09/17 23:15 Dose 500 mg in 250 mls @ ud IV .STK-MED ONE Ceftriaxone Sodium/Dextrose Confirm 10/09/17 23:14 Rocephin 1 Gm-D5w 50 Ml Bag Administered 10/09/17 23:15 Dose 1 g in 50 mls @ ud IV .STK-MED ONE Lactated Ringer's Confirm 10/10/17 00:01 Lactated Ringers Administered 10/10/17 00:02 Dose 1,000 mls @ ud IV .STK-MED ONE Levalbuterol HCl 1.25 mg 10/10/17 01:56 10/10/17 02:28 Xopenex 1.25 Mg/0.5 Ml Ud Nebule IH 10/10/17 01:57 1.25 mg STAT ONE Administration Levalbuterol HCl Confirm 10/10/17 02:11 Xopenex 1.25 Mg/0.5 Ml Ud Nebule Administered 10/10/17 02:12 Dose 1.25 mg IH .STK-MED ONE Nitroglycerin 0.4 mg 10/09/17 21:16 10/09/17 21:26 Nitrostat 0.4 Mg (Ed) SL 10/09/17 21:17 0.4 mg STAT ONE Administration Nitroglycerin Confirm 10/09/17 21:23 Nitrostat 0.4 Mg (Ed) Administered 10/09/17 21:24 Dose 0.4 mg SL .STK-MED ONE Sodium Chloride Confirm 10/10/17 02:11 Sodium Chloride 3 Ml Ud Nebules Administered 10/10/17 02:12 Dose 3 ml IH .STK-MED ONE Intake & Output (Last 24 hours) 10/09/17 10/10/17 10/11/17 10/12/17 11:59 11:59 11:59 11:59 Intake Total 45 2765 Output Total 100 1250 Balance -55 1515 Weight 59.1 kg Microbiology Results (Last 24 hours) 10/09/17 23:06 Urine, Void - Final NO GROWTH 10/09/17 21:33 Blood - Pending 10/09/17 21:33 Blood Blood Culture - Preliminary NO GROWTH TO DATE 10/09/17 21:29 Blood - Pending 10/09/17 21:29 Blood Blood Culture - Preliminary NO GROWTH TO DATE Laboratory Results (Last 24 hours) 10/10/17 06:32 Sodium 141 Potassium 4.3 Chloride 100 Carbon Dioxide 37 H Anion Gap 8.5 BUN 13 Creatinine 0.61 L Estimated GFR > 60 Glucose 94 Calcium 8.9 Total Bilirubin 0.20 AST 19 ALT 18 Alkaline Phosphatase 70 Serum Total Protein 6.0 L Albumin 3.3 L Prealbumin 17.91 Orders (Last 24 hours) Category Date Time Status Consult Pulmonology ROUTINE Cons 10/10/17 13:21 Active Azithromycin 500 mg/250 ml [Zithromax 500 MG/ 250 ML Med 10/10/17 22:00 Active NaCl Premix] 500 mg in 250 ml IV Q24H22 Ceftriaxone 1 GM/50 ML PREMIX* [ROCEPHIN 1 Gm-D5w 50 ml Med 10/10/17 22:00 Active Bag] 1 g in 50 ml IV Q24H22 Clonazepam 0.5 mg [Klonopin 0.5 MG] Med 10/10/17 13:29 Active 1 mg PO TID PRN PRN Enoxaparin Sodium [Enoxaparin Sodium] Med 10/10/17 14:00 Active 40 mg SQ DAILY Methylprednis Sod Succ 125 mg* [solu-MEDROL 125 MG] Med 10/10/17 15:00 Active 80 mg IV TID Patient Care Notes (Last 24 hours) 10/11/17 10:54 Case Management Note by Ness Rodríguez Talked with pt's regarding needs at time of discharge. Patient lives at home with spouse and plans to return there at discharge. Important message from Medicare signed by pt's .Forms placed on chart. Will continue to follow for all Discharge needs. Initialized on 10/11/17 10:54 - END OF NOTE 10/10/17 13:10 (created 10/10/17 14:32) Case Management Note by Jessenia Del Toro DR. ROUNDED AND EVALUATED, DISCUSSED PLAN OF CARE WITH PT AND . VERBALIZED UNDERSTANDING AND IN AGREEMENT. Initialized on 10/10/17 14:32 - END OF NOTE Code(s): J44.1 - CHRONIC OBSTRUCTIVE PULMONARY DISEASE W (ACUTE) EXACERBATION (2) Acute respiratory failure Current Visit: Yes Status: Acute Code(s): J96.00 - ACUTE RESPIRATORY FAILURE , UNSP W HYPOXIA OR HYPERCAPNIA (3) Pneumonia Current Visit: Yes Status: Acute Code(s): J18.9 - PNEUMONIA, UNSPECIFIED ORGANISM
[2017-10-11] MEDS: ROCEPHIN 1 Gm-D5w 50 ml Bag** 1 G/50 ML IVPB IV SCH (20:54)
[2017-10-11] MEDS: Zithromax 500 MG/ 250 ML NaCl Premix 500 MG/250 ML IVPB IV SCH (21:33)
[2017-10-12] MEDS: MORPHINE SULFATE 2 MG INJ IV PRN (02:01)
[2017-10-12] MEDS: Sodium Chloride 0.9% 1000 ML 1,000 ML IV SCH (04:45)
[2017-10-12] MEDS: DUONEB 0.5-3 MG/3 ml Neb IH SCH ×3 (05:19→10:47)
[2017-10-12 05:43] LABS: Hematocrit 38.1 % (42-50); Hemoglobin 11.7 gm/dl (12.5-18.0); Mean Cell Volume 104.4 fl (78-100); Mean Corpuscular Hgb Concent. 30.7 g/dl (32-36); Mean Platelet Volume 10.5 fl (6-9.5); Platelet Count 211 K/mm3 (150-450); Red Blood Count 3.65 M/mm3 (4.1-5.6); Red Cell Distribution Width 13.4 % (11.5-14.0); White Blood Count 9.5 K/mm3 (4.0-10.5)
[2017-10-12 06:06] LABS: ALBUMIN 3.2 g/dL (3.5-5.0); ALKALINE PHOSPHATASE 80 U/L (38-126); ANION GAP 8.5 MEQ/L (5-15); BLOOD UREA NITROGEN 10 mg/dL (9-20); CHLORIDE 103 mmol/L (98-107); Carbon Dioxide 36 mmol/L (22-30); Creatinine 1 0.52 mg/dL (0.66-1.25); Glucose 108 mg/dL (74-106); Potassium 3.8 mmol/L (3.5-5.1); SGOT/AST 16 U/L (17-59); SGPT/ALT 20 U/L (0-50); SODIUM 144 mmol/L (137-145); Total Protein 5.6 g/dL (6.3-8.2)
[2017-10-12] MEDS: Advair Hfa 230/21 Mcg COMMON CANISTER IH SCH (07:18)
--- NOTE | 2017-10-12 09:28 | XRAY ---
Indication: COPD. Comparison: October 09, 2017. PA/lateral chest unchanged again with diffuse pulmonary emphysema and no focal infiltrate, consolidation, or large effusion. Heart is not enlarged. No new/acute findings.
[2017-10-12] MEDS: solu-MEDROL 125 MG IV SCH (10:26)
[2017-10-12] MEDS: ENOXAPARIN SODIUM SQ SCH (10:29)
[2017-10-12] MEDS: Klonopin 0.5 MG PO PRN (11:15)
[2017-10-12 12:27] VITALS: PULSE 111
[2017-10-12 12:30] VITALS: BP 164/90; O2SAT 95
--- NOTE | 2017-10-12 12:49 | PCM.DS ---
Discharge Summary Date of Admission: 10/10/17 02:54 Date of Discharge: 10/12/2017 Admitting Physician: MADDIE SILVA Consults: Consults on Case 10/10/17 13:21 Consult Pulmonology ROUTINE Primary Care Provider: MADDIE SILVA Allergies Allergies No Known Drug Allergies Allergy (Verified 10/09/17 22:03) Hospital Summary - Hospital Course Hospital Course: Chief Complaint Diagnosis Acute Resp failure,LLL pneumonia, UTI Allergies Allergy/AdvReac Type Severity Reaction Status Date / Time No Known Drug Allergies Allergy Verified 10/09/17 22:03 Vital Signs (Last 24 hours) Temp Pulse Resp BP Pulse Ox 10/12/17 12:00 97.9 F 111 H 22 164/90 95 10/12/17 10:49 110 H 20 94 L 10/12/17 08:00 110 H 20 10/12/17 07:52 97.6 F 88 20 140/84 96 10/12/17 07:18 86 22 98 10/12/17 04:13 98.6 F 93 H 20 141/79 97 10/12/17 04:00 93 H 20 10/12/17 00:19 91 H 17 114/63 99 10/12/17 00:01 91 H 10/12/17 00:00 17 10/11/17 23:00 94 H 18 98 10/11/17 21:00 98.3 F 109 H 23 151/88 97 10/11/17 20:00 109 H 21 10/11/17 19:00 99 H 18 98 10/11/17 16:49 98.2 F 102 H 23 136/83 96 10/11/17 16:00 93 H 22 10/11/17 14:10 108 H 27 H 98 10/11/17 13:00 114 H 35 H 144/91 95 Home Medications Medication Instructions Recorded Confirmed Last Taken Type Budesonide/Formoterol Fumarate 2 inh .ROUTE BID 10/09/17 10/09/17 10/09/17 History [Symbicort 160-4.5 Mcg Inhaler] Clonazepam [Clonazepam] 1 mg PO TID PRN 10/09/17 10/09/17 10/09/17 History Current Medications Generic Name Dose Route Start Last Admin Trade Name Freq PRN Reason Stop Dose Admin Acetaminophen 650 mg 10/10/17 02:59 Tylenol 325 Mg PO 11/09/17 02:58 Q4H PRN PRN PAIN AND/OR FEVER Albuterol Sulfate 2.5 mg 10/10/17 02:59 Proventil 2.5 Mg/3 Ml Neb IH 11/09/17 02:58 Q2H PRN PRN SHORTNESS OF BREATH/WHEEZING Albuterol/Ipratropium 3 ml 10/10/17 03:00 10/12/17 10:47 Duoneb 0.5-3 Mg/3 Ml Neb IH 11/09/17 02:59 3 ml Q4HRT KELSEA Administration Clonazepam 1 mg 10/10/17 13:29 10/12/17 11:15 Klonopin 0.5 Mg PO 11/09/17 13:28 1 mg TID PRN PRN Administration ANXIETY Enoxaparin Sodium 40 mg 10/10/17 14:00 10/12/17 10:29 Enoxaparin Sodium SQ 11/09/17 13:59 40 mg DAILY KELSEA Administration Azithromycin 500 mg in 250 mls @ 250 mls/hr 10/10/17 22:00 10/11/17 21:33 Zithromax 500 Mg/ 250 Ml Nacl Premix IV 11/09/17 21:59 250 mls/hr Q24H22 KELSEA Administration Ceftriaxone Sodium/Dextrose 1 g in 50 mls @ 100 mls/hr 10/10/17 22:00 20:54 Rocephin 1 Gm-D5w 50 Ml Bag IV 11/09/17 21:59 100 mls/hr Q24H22 KELSEA Administration Sodium Chloride 1,000 mls @ 100 mls/hr 10/10/17 02:59 10/12/17 04:45 Sodium Chloride 0.9% 1000 Ml IV 11/09/17 02:58 100 mls/hr .Q10H KELSEA Administration Methylprednisolone Sodium Succinate 80 mg 10/11/17 22:00 10/12/17 10:26 Solu-Medrol 125 Mg IV 11/10/17 21:59 80 mg BID KELSEA Administration Morphine Sulfate 2 mg 10/10/17 02:59 10/12/17 02:01 Morphine Sulfate 2 Mg Inj IV 10/15/17 02:58 2 mg Q4H PRN PRN Administration PAIN Nitroglycerin 0.4 mg 10/10/17 02:59 Nitrostat 0.4 Mg Tablet SL 11/09/17 02:58 Q5MIN PRN MR X 3 PRN CHEST PAIN Promethazine HCl 12.5 mg 10/10/17 02:59 Phenergan 25 Mg Inj IV 11/09/17 02:58 Q6H PRN PRN NAUSEA/VOMITING Fluticasone/Salmeterol 2 puff 10/10/17 07:00 10/12/17 07:18 Advair Hfa 230/21 Mcg Common Canister* IH 11/09/17 06:59 2 puff BIDRT KELSEA Administration Discontinued Medications Generic Name Dose Route Start Last Admin Trade Name Freq PRN Reason Stop Dose Admin Albuterol/Ipratropium Confirm 10/10/17 06:42 Duoneb 0.5-3 Mg/3 Ml Neb Administered 10/10/17 06:43 Dose 3 ml IH .STK-MED ONE Sodium Chloride 1,000 mls @ 999 mls/hr 10/09/17 21:16 10/09/17 21:21 Sodium Chloride 0.9% 1000 Ml IV 10/09/17 22:16 999 mls/hr .Q1H1M STA Administration Sodium Chloride Confirm 10/09/17 21:19 Sodium Chloride 0.9% 1000 Ml Administered 10/09/17 21:20 Dose 1,000 mls @ ud .ROUTE .STK-MED ONE Sodium Chloride Confirm 10/09/17 21:23 Sodium Chloride 0.9% 1000 Ml Administered 10/09/17 21:24 Dose 1,000 mls @ ud .ROUTE .STK-MED ONE Ceftriaxone Sodium/Dextrose 1 g in 50 mls @ 100 mls/hr 10/09/17 22:32 23:20 Rocephin 1 Gm-D5w 50 Ml Bag IV 10/09/17 23:01 100 mls/hr STAT STA Administration Azithromycin 500 mg in 250 mls @ 250 mls/hr 10/09/17 22:32 10/10/17 00:03 Zithromax 500 Mg/ 250 Ml Nacl Premix IV 10/09/17 23:31 250 mls/hr STAT STA Administration Lactated Ringer's 1,000 mls @ 999 mls/hr 10/09/17 23:16 10/10/17 00:03 Lactated Ringers IV 10/10/17 00:16 999 mls/hr .Q1H1M ONE Administration Azithromycin Confirm 10/09/17 23:14 Zithromax 500 Mg/ 250 Ml Nacl Premix Administered 10/09/17 23:15 Dose 500 mg in 250 mls @ ud IV .STK-MED ONE Ceftriaxone Sodium/Dextrose Confirm 10/09/17 23:14 Rocephin 1 Gm-D5w 50 Ml Bag Administered 10/09/17 23:15 Dose 1 g in 50 mls @ ud IV .STK-MED ONE Lactated Ringer's Confirm 10/10/17 00:01 Lactated Ringers Administered 10/10/17 00:02 Dose 1,000 mls @ ud IV .STK-MED ONE Levalbuterol HCl 1.25 mg 10/10/17 01:56 10/10/17 02:28 Xopenex 1.25 Mg/0.5 Ml Ud Nebule IH 10/10/17 01:57 1.25 mg STAT ONE Administration Levalbuterol HCl Confirm 10/10/17 02:11 Xopenex 1.25 Mg/0.5 Ml Ud Nebule Administered 10/10/17 02:12 Dose 1.25 mg IH .STK-MED ONE Methylprednisolone Sodium Succinate 80 mg 10/10/17 15:00 10/11/17 09:16 Solu-Medrol 125 Mg IV 11/09/17 14:59 80 mg TID KELSEA Administration Nitroglycerin 0.4 mg 10/09/17 21:16 10/09/17 21:26 Nitrostat 0.4 Mg (Ed) SL 10/09/17 21:17 0.4 mg STAT ONE Administration Nitroglycerin Confirm 10/09/17 21:23 Nitrostat 0.4 Mg (Ed) Administered 10/09/17 21:24 Dose 0.4 mg SL .STK-MED ONE Sodium Chloride Confirm 10/10/17 02:11 Sodium Chloride 3 Ml Ud Nebules Administered 10/10/17 02:12 Dose 3 ml IH .STK-MED ONE Intake & Output (Last 24 hours) 10/10/17 10/11/17 10/12/17 0315/18 11:59 11:59 11:59 11:59 Intake Total 45 2765 2640 Output Total 100 1250 1200 Balance -55 1515 1440 Weight 59.1 kg Microbiology Results (Last 24 hours) 10/09/17 21:50 Throat Throat Culture - Final GROUP A BETA STREP PRESENT ON CULTURE 10/09/17 23:06 Urine, Void - Final NO GROWTH Laboratory Results (Last 24 hours) 10/12/17 10/12/17 05:20 05:20 WBC 9.5 RBC 3.65 L Hgb 11.7 L Hct 38.1 L MCV 104.4 H MCH 32.0 MCHC 30.7 L RDW 13.4 Plt Count 211 MPV 10.5 H Sodium 144 Potassium 3.8 Chloride 103 Carbon Dioxide 36 H Anion Gap 8.5 BUN 10 Creatinine 0.52 L Estimated GFR > 60 Glucose 108 H Calcium 9.0 Total Bilirubin 0.30 AST 16 L ALT 20 Alkaline Phosphatase 80 Serum Total Protein 5.6 L Albumin 3.2 L Orders (Last 24 hours) Category Date Time Status CHEST 2 VIEWS (PA AND LAT) 1XONLY Exams 10/12/17 08:00 Completed CHEST 2 VIEWS (PA AND LAT) 1XONLY Exams 10/13/17 08:00 Ordered CBC AM.LAB Lab 10/12/17 05:20 Completed CMP AM.LAB Lab 10/12/17 05:20 Completed Methylprednis Sod Succ 125 mg* [solu-MEDROL 125 MG] Med 10/11/17 22:00 Active 80 mg IV BID Patient Care Notes (Last 24 hours) 10/12/17 11:38 Nursing Note by Louie Pugh pt walked on 4L O2. Sat slowly dropped to 80% on the 4L. Pt walked approx 40 feet. Pt sitting back in bed and O2 sat has increased to 95%. Will continue to monitor. Initialized on 10/12/17 11:38 - END OF NOTE 10/12/17 10:19 Case Management Note by Ness Rodríguez FOLLOW UP APPOINTMENTS MADE WITH DR. WALKER AND DR. RAMON. MEDICAL RECORDS FAXED OT DR. RAMON'S OFFICE. Initialized on 10/12/17 10:19 - END OF NOTE 10/12/17 09:09 Case Management Note by Ness Rodríguez Talked with CAROLINE CUELLAR regarding needs at time of discharge. Patient says he doesn't need any help at home and is adamant about not wanting home health assistance. He is currently on 4L NC at home and gets his oxygen from [facility]. Initialized on 10/12/17 09:09 - END OF NOTE - Vitals & Intake/Output Vital Signs: Vital Signs Temperature 97.9 F 10/12/17 12:00 Pulse Rate 111 H 10/12/17 12:00 Respiratory Rate 22 10/12/17 12:00 Blood Pressure 164/90 10/12/17 12:00 O2 Sat by Pulse Oximetry 95 10/12/17 12:00 Oxygen-Last Documented O2 Percentage 4 Liters = 36% Intake & Output: Intake & Output 10/10/17 10/11/17 10/12/17 10/13/17 11:59 11:59 11:59 11:59 Intake Total 45 2765 2640 Output Total 100 1250 1200 Balance -55 1515 1440 Weight 59.1 kg - Lab Result Diagrams: 10/12/17 05:20 10/12/17 05:20 Lab Results-Last 24 Hrs: Lab Results-Last 24 Hours 10/12/17 10/12/17 Range/Units 05:20 05:20 WBC 9.5 (4.0-10.5) K/mm3 RBC 3.65 L (4.1-5.6) M/mm3 Hgb 11.7 L (12.5-18.0) gm/dl Hct 38.1 L (42-50) % MCV 104.4 H (78-100) fl MCH 32.0 (26-32) pg MCHC 30.7 L (32-36) g/dl RDW 13.4 (11.5-14.0) % Plt Count 211 (150-450) K/mm3 MPV 10.5 H (6-9.5) fl Sodium 144 (137-145) mmol/L Potassium 3.8 (3.5-5.1) mmol/L Chloride 103 (98-107) mmol/L Carbon Dioxide 36 H (22-30) mmol/L Anion Gap 8.5 (5-15) MEQ/L BUN 10 (9-20) mg/dL Creatinine 0.52 L (0.66-1.25) mg/dL Estimated GFR > 60 ML/MIN Glucose 108 H (74-106) mg/dL Calcium 9.0 (8.4-10.2) mg/dL Total Bilirubin 0.30 (0.2-1.3) mg/dL AST 16 L (17-59) U/L ALT 20 (0-50) U/L Alkaline Phosphatase 80 (38-126) U/L Serum Total Protein 5.6 L (6.3-8.2) g/dL Albumin 3.2 L (3.5-5.0) g/dL - Radiology Exams Ordered Rad Exams-Entire Visit: Radiology Procedures Category Date Time Status CHEST 2 VIEWS (PA AND LAT) 1XONLY Exams 10/12/17 08:00 Completed CHEST 2 VIEWS (PA AND LAT) 1XONLY Exams 10/13/17 08:00 Ordered - Procedures and Test Procedures and Tests throughout Hospitalization: Therapy Orders & Screens 10/10/17 07:00 Respiratory MDI BID Comment: Diagnosis: Acute Resp failure,LLL pneumonia, UTI neb [Respiratory Nebulizer] Q4H Comment: Diagnosis: Acute Resp failure,LLL pneumonia, UTI Discharge Exam General Appearance: no apparent distress, alert Neurologic Exam: alert, oriented x 3, cooperative, normal mood/affect, nml cerebellar function, sensation nml, No motor deficits Skin Exam: normal color, warm, dry Eye Exam: PERRL, EOMI, eyes nml inspection Ears, Nose, Throat Exam: normal ENT inspection, pharynx normal, moist mucous membranes Neck Exam: normal inspection, non-tender, supple, full range of motion Respiratory Exam: normal breath sounds, diminished breath sounds, rhonchi, wheezing, No respiratory distress Cardiovascular Exam: regular rate/rhythm, normal heart sounds Gastrointestinal/Abdomen Exam: soft, No tenderness, No mass Extremity Exam: normal inspection, normal range of motion Back Exam: normal inspection, normal range of motion, No CVA tenderness, No vertebral tenderness Male Genitalia Exam: deferred Rectal Exam: deferred Final Diagnosis/Problem List - Final Discharge Diagnosis/Problem (1) COPD exacerbation Current Visit: Yes Status: Resolved (2) Acute respiratory failure Current Visit: Yes Status: Resolved (3) Pneumonia Current Visit: Yes Status: Resolved - Discharge Discharge Date: 10/12/17 Disposition: Home, Self-Care Condition: Stable Prescriptions: New Levofloxacin [Levaquin] 500 mg PO DAILY #7 tablet Methylprednisolone [Medrol Dose Pack] 4 mg PO UD 7 Days #21 tab Continue Clonazepam 1 mg PO TID PRN Budesonide/Formoterol Fumarate [Symbicort 160-4.5 Mcg Inhaler] 2 inh .ROUTE BID Instructions: Exacerbation of COPD (DC) Additional Instructions: Continue Home O2 as previously ordered. Follow up with: ADELA WALKER [CONSULTING PHYSICIAN] - 10/21/17 10:15 am ASHLEIGH JIMENEZ MD [NON-STAFF PHY W/O PRIVILEGES] - 10/31/17 11:00 am Forms: Discharge Instructions, Patient Portal Information
== END 2017-10-12 13:20 | disposition home or self-care (01) ==
LOC: ED 20:58 → ICU 10-10 02:54
PROVIDERS: ADMIT General Practice; ATTEND General Practice
DX: J44.1 Chronic obstructive pulmonary disease with (acute) exacerbation (principal); J96.00 Acute respiratory failure, unspecified whether with hypoxia or hypercapnia; J18.9 Pneumonia, unspecified organism; N39.0 Urinary tract infection, site not specified
CPT/HCPCS: 36000; 36415; 36600; 71045; 71046; 71260; 80053; 81000; 82150; 82375; 82803; 83605; 83690; 83735; 83880; 84134; 84484; 85025; 85027; 85379; 87040; 87070; 87086; 87430; 87631; 93005; 93041; 93268; 94002; 94003; 94150; 94640; 94760; 96360; 96361; 96365; 96366; 99285; G0378; J0456; J0696; J1650; J2270; J2930; A9270-GY

== ENCOUNTER 2017-10-27 21:44 | Inpatient (IN) | payer MEDICARE ==
[2017-10-27] MEDS ORDERED: solu-MEDROL 125 MG (21:51)
[2017-10-27] MEDS ORDERED: DUONEB 0.5-3 MG/3 ml Neb IH (21:51)
[2017-10-27] MEDS: DUONEB 0.5-3 MG/3 ml Neb IH (21:56)
[2017-10-27] MEDS ORDERED: Sodium Chloride 0.9% 1000 ML 1,000 ML (21:59)
[2017-10-27] MEDS ORDERED: ROCEPHIN 1 Gm-D5w 50 ml Bag** 1 G/50 ML IVPB IV (22:00)
[2017-10-27 22:03] LABS: BASOPHIL % 0.4 % (0.0-0.4); Basophil (Absolute #) 0.04 (0-0.4); Eosinophil (Absolute #) 0.18 (0-0.5); Granulocyte Absolute (ANC) 4.34 (1.4-6.9); Granulocytes % 47.8 % (36.0-66.0); Hemoglobin 14.7 gm/dl (12.5-18.0); Lymphocyte (Absolute #) 3.55 (1.0-4.6); Lymphocytes % 39.1 % (24.0-44.0); Mean Corpuscular Hemoglobin 33.4 pg (26-32); Mean Corpuscular Hgb Concent. 33.4 g/dl (32-36); Mean Platelet Volume 10.4 fl (6-9.5); Monocyte (Absolute #) 0.97 (0.0-1.3); Monocytes % 10.7 % (0.0-12.0); Platelet Count 233 K/mm3 (150-450); White Blood Count 9.1 K/mm3 (4.0-10.5)
[2017-10-27 22:04] LABS: ADD MANUAL DIFF? NO (NO)
[2017-10-27] MEDS: Sodium Chloride 0.9% 1000 ML 1,000 ML IV (22:09)
[2017-10-27] MEDS: ROCEPHIN 1 Gm-D5w 50 ml Bag** 1 G/50 ML IVPB IV (22:18)
[2017-10-27 22:24] LABS: A-aADO2 105; ABG HEMOGLOBIN 14.2; ABG POTASSIUM 4.7 (3.5-5.1); ARTERIAL BLD GAS O2 SATURATION 94.9 % (95-100); ARTERIAL BLOOD GAS BASE EXCESS 7.3 (-2.0-2.0); ARTERIAL BLOOD GAS FIO2 36 %; ARTERIAL BLOOD GAS PO2 69 mmHg (75-100); ARTERIAL BLOOD GAS pH 7.34 (7.35-7.45); CARBOXYHEMOGLOBIN 2.2 % THgb (0.0-6.9); HCO3- 35.6 (22-28); HGB O2 SAT 92.5 g/dF (94-100); Methhemoglobin 0.3 % (1.4-1.5)
[2017-10-27 22:25] LABS: ABG SITE RIGHT RADIAL; ALLEN TEST OK? YES; ARTERIAL BLOOD GAS PCO2 66 mmHg (35-45)
[2017-10-27 22:29] LABS: ALBUMIN 3.9 g/dL (3.5-5.0); ALKALINE PHOSPHATASE 92 U/L (38-126); ANION GAP 12.1 MEQ/L (5-15); BLOOD UREA NITROGEN 15 mg/dL (9-20); CHLORIDE 98 mmol/L (98-107); Calcium 9.6 mg/dL (8.4-10.2); Carbon Dioxide 38 mmol/L (22-30); Creatinine 1 0.79 mg/dL (0.66-1.25); EST GLOMERULAR FILTRATION RATE > 60 ML/MIN; Glucose 115 mg/dL (74-106); MAGNESIUM 2.2 mg/dL (1.6-2.3); Potassium 5.1 mmol/L (3.5-5.1); SGOT/AST 31 U/L (17-59); SGPT/ALT 21 U/L (0-50); SODIUM 144 mmol/L (137-145)
[2017-10-27] MEDS: solu-MEDROL 125 MG IV (22:33)
[2017-10-27 22:36] LABS: INR 0.99 (0.8-3.0)
[2017-10-27 22:37] LABS: NT PRO BNP 31.8 pg/mL (0-900)
[2017-10-27 22:38] LABS: PTT 36.9 SECONDS (24.1-36.1)
[2017-10-27 22:42] LABS: D-DIMER QUANTITATION 495.84 ng/mL (215-500)
[2017-10-27 22:50] LABS: STREP SCREEN-BETA A NEGATIVE (Negative)
[2017-10-27] MEDS ORDERED: Zithromax 500 MG/ 250 ML NaCl Premix 500 MG/250 ML IVPB IV (22:52)
[2017-10-27] MEDS: Zithromax 500 MG/ 250 ML NaCl Premix 500 MG/250 ML IVPB IV (22:56)
[2017-10-27 22:57] LABS: TROPONIN < 0.012 ng/mL (0.000-0.034)
[2017-10-27 23:04] LABS: INFLUENZA B NEGATIVE (NEGATIVE); RESPIRATORY SYNCTIAL VIRUS NEGATIVE (Negative)
[2017-10-27 23:04] LABS: INFLUENZA A NEGATIVE (NEGATIVE)
[2017-10-27 23:24] LABS: A-aADO2 84; ABG HEMOGLOBIN 13.6; ABG POTASSIUM 4.4 (3.5-5.1); ARTERIAL BLD GAS O2 SATURATION 96.3 % (95-100); ARTERIAL BLOOD GAS BASE EXCESS 5.7 (-2.0-2.0); ARTERIAL BLOOD GAS FIO2 36 %; ARTERIAL BLOOD GAS PO2 90 mmHg (75-100); ARTERIAL BLOOD GAS pH 7.32 (7.35-7.45); CARBOXYHEMOGLOBIN 1.5 % THgb (0.0-6.9); HGB O2 SAT 94.5 g/dF (94-100); Methhemoglobin 0.4 % (1.4-1.5); paO2 pAO1 0.52
[2017-10-27 23:25] LABS: ABG SITE LEFT RADIAL; ALLEN TEST OK? YES; ARTERIAL BLOOD GAS PCO2 66 mmHg (35-45)
[2017-10-28 00:04] LABS: Appearance CLEAR (CLEAR); Bilirubin NEGATIVE (NEGATIVE); Blood TRACE NON-HEM Ery/ul (0-5); COMPLETE URINE MICROSCOPIC? YES; Collection Type CCMS; Glucose NEGATIVE (NEGATIVE); Ketones NEGATIVE (NEGATIVE); Leukocyte Esterase NEGATIVE (NEGATIVE); Nitrite NEGATIVE (NEGATIVE); Protein,Urine Dip NEGATIVE (Negative); Urobilinogen NORMAL mg/dL (0-1)
[2017-10-28 00:05] LABS: ADD URINE CULTURE? NO (NO); Bacteria RARE /HPF (NEGATIVE); Epithelial Cells RARE /HPF (FEW); Mucus SLIGHT /HPF (NEGATIVE)
[2017-10-28] MEDS ORDERED: Phenergan 25 MG INJ IV (01:02)
[2017-10-28] MEDS ORDERED: PROVENTIL 2.5 MG/3 ML NEB IH (01:02)
[2017-10-28] MEDS ORDERED: TYLENOL 325 MG PO (01:02)
[2017-10-28] MEDS ORDERED: MORPHINE SULFATE 2 MG INJ IV (01:02)
[2017-10-28 02:38] LABS: TROPONIN < 0.012 ng/mL (0.000-0.034)
[2017-10-28] MEDS: Sodium Chloride 0.9% 1000 ML 1,000 ML IV ×3 (03:44→18:06)
[2017-10-28] MEDS: DUONEB 0.5-3 MG/3 ml Neb IH ×6 (03:45→23:57)
[2017-10-28 04:41] LABS: BASOPHIL % 0.3 % (0.0-0.4); Basophil (Absolute #) 0.02 (0-0.4); Eosinophil (Absolute #) 0 (0-0.5); Granulocyte Absolute (ANC) 5.14 (1.4-6.9); Granulocytes % 88.7 % (36.0-66.0); Hematocrit 40.5 % (42-50); Hemoglobin 12.9 gm/dl (12.5-18.0); Lymphocytes % 10.3 % (24.0-44.0); Mean Cell Volume 101.8 fl (78-100); Mean Corpuscular Hemoglobin 32.4 pg (26-32); Mean Corpuscular Hgb Concent. 31.9 g/dl (32-36); Mean Platelet Volume 10.5 fl (6-9.5); Monocyte (Absolute #) 0.04 (0.0-1.3); Monocytes % 0.7 % (0.0-12.0); Platelet Count 201 K/mm3 (150-450); Red Blood Count 3.98 M/mm3 (4.1-5.6); Red Cell Distribution Width 13.8 % (11.5-14.0); White Blood Count 5.8 K/mm3 (4.0-10.5)
[2017-10-28 04:45] LABS: ADD MANUAL DIFF? NO (NO)
[2017-10-28 05:05] LABS: ALBUMIN 3.4 g/dL (3.5-5.0); ALKALINE PHOSPHATASE 77 U/L (38-126); ANION GAP 11.4 MEQ/L (5-15); BLOOD UREA NITROGEN 19 mg/dL (9-20); CHLORIDE 102 mmol/L (98-107); Calcium 8.9 mg/dL (8.4-10.2); Carbon Dioxide 32 mmol/L (22-30); Creatinine 1 0.67 mg/dL (0.66-1.25); EST GLOMERULAR FILTRATION RATE > 60 ML/MIN; Glucose 189 mg/dL (74-106); Potassium 4.8 mmol/L (3.5-5.1); SGOT/AST 16 U/L (17-59); SGPT/ALT 18 U/L (0-50); SODIUM 141 mmol/L (137-145); Total Protein 5.9 g/dL (6.3-8.2)
[2017-10-28] MEDS ORDERED: solu-MEDROL 40 MG (05:17)
[2017-10-28] MEDS: solu-MEDROL 125 MG IV (05:23)
[2017-10-28 05:29] LABS: TROPONIN < 0.012 ng/mL (0.000-0.034)
[2017-10-28] MEDS: Advair Hfa 230/21 Mcg COMMON CANISTER IH (06:57)
[2017-10-28 07:47] LABS: TROPONIN < 0.012 ng/mL (0.000-0.034)
[2017-10-28 10:48] LABS: TROPONIN < 0.012 ng/mL (0.000-0.034)
[2017-10-28] MEDS: solu-MEDROL 40 MG IV ×2 (11:27→17:55)
[2017-10-28] MEDS: Klonopin 0.5 MG PO (14:02)
[2017-10-28] MEDS: ROCEPHIN 1 Gm-D5w 50 ml Bag** 1 G/50 ML IVPB IV (21:06)
[2017-10-28] MEDS: Zithromax 500 MG/ 250 ML NaCl Premix 500 MG/250 ML IVPB IV (21:40)
[2017-10-29] MEDS: solu-MEDROL 40 MG IV ×4 (00:36→17:25)
[2017-10-29] MEDS: Klonopin 0.5 MG PO ×2 (07:22→17:30)
[2017-10-29] MEDS: Sodium Chloride 0.9% 1000 ML 1,000 ML IV (07:24)
[2017-10-29] MEDS: DUONEB 0.5-3 MG/3 ml Neb IH ×3 (07:30→15:56)
== END 2017-10-29 19:45 | disposition home or self-care (01) ==
LOC: MED SURG 10-28 00:28 → ED 21:44
CPT/HCPCS: 36000; 36415; 36600; 71045; 80053; 81000; 81002; 82375; 82803; 83735; 83880; 84484; 85025; 85379; 85610; 85730; 87040; 87070; 87430; 87631; 93005; 93041; 96360; 96361; 96365; 96366; 99285; J0456; J0696; J2920; J2930

== ENCOUNTER 2017-11-04 00:18 | Inpatient (IN) | payer MEDICARE ==
[~2017-11-04 00:18] MED LIST: DUONEB 0.5-3 MG/3 ml Neb IH ONE; PROVENTIL 2.5 MG/3 ML NEB IH ONE
[2017-11-04] MEDS ORDERED: Zithromax 500 MG/ 250 ML NaCl Premix 500 MG/250 ML IVPB IV STA (00:25)
[2017-11-04] MEDS ORDERED: ROCEPHIN 1 Gm-D5w 50 ml Bag** 1 G/50 ML IVPB IV STA (00:25)
[2017-11-04] MEDS ORDERED: DUONEB 0.5-3 MG/3 ml Neb IH ONE (00:25)
[2017-11-04] MEDS ORDERED: Sodium Chloride 0.9% 1000 ML 1,000 ML IV SCH (00:30)
[2017-11-04 00:31] LABS: A-aADO2 283; ABG HEMOGLOBIN 15.5; ABG POTASSIUM 4.6 (3.5-5.1); ARTERIAL BLD GAS O2 SATURATION 98.2 % (95-100); ARTERIAL BLOOD GAS BASE EXCESS 9.2 (-2.0-2.0); ARTERIAL BLOOD GAS FIO2 100 %; ARTERIAL BLOOD GAS PCO2 119 mmHg (35-45); ARTERIAL BLOOD GAS PO2 281 mmHg (75-100); ARTERIAL BLOOD GAS VENT MODE BiPAP; CARBOXYHEMOGLOBIN 1.6 % THgb (0.0-6.9); HCO3- 43.4 (22-28); HGB O2 SAT 96.6 g/dF (94-100); Lactic Acid 0.7 (0.4-2.0); Methhemoglobin 0.1 % (1.4-1.5)
[2017-11-04 00:32] LABS: ABG SITE LEFT BRACHIAL; ALLEN TEST OK? NO; ARTERIAL BLOOD GAS pH 7.17 (7.35-7.45)
[2017-11-04] MEDS ORDERED: Sodium Chloride 0.9% 1000 ML 1,000 ML ONE (00:42)
[2017-11-04] MEDS ORDERED: ROCEPHIN 1 Gm-D5w 50 ml Bag** 1 G/50 ML IVPB IV ONE (00:42)
[2017-11-04] MEDS ORDERED: Zithromax 500 MG/ 250 ML NaCl Premix 500 MG/250 ML IVPB IV ONE (00:42)
[2017-11-04 00:48] LABS: BASOPHIL % 0.1 % (0.0-0.4); Basophil (Absolute #) 0.01 (0-0.4); Eosinophil % 1.5 % (0.00-5.0); Eosinophil (Absolute #) 0.21 (0-0.5); Granulocyte Absolute (ANC) 5.45 (1.4-6.9); Granulocytes % 38.3 % (36.0-66.0); Hematocrit 47.9 % (42-50); Hemoglobin 15.3 gm/dl (12.5-18.0); Lymphocyte (Absolute #) 7.35 (1.0-4.6); Lymphocytes % 51.7 % (24.0-44.0); Mean Cell Volume 101.9 fl (78-100); Mean Corpuscular Hemoglobin 32.6 pg (26-32); Mean Corpuscular Hgb Concent. 31.9 g/dl (32-36); Mean Platelet Volume 10.2 fl (6-9.5); Monocytes % 8.4 % (0.0-12.0); Platelet Count 244 K/mm3 (150-450); Red Cell Distribution Width 13.9 % (11.5-14.0); White Blood Count 14.2 K/mm3 (4.0-10.5)
[2017-11-04 01:11] LABS: ALBUMIN 4.2 g/dL (3.5-5.0); ALKALINE PHOSPHATASE 105 U/L (38-126); BLOOD UREA NITROGEN 15 mg/dL (9-20); CHLORIDE 94 mmol/L (98-107); Calcium 9.3 mg/dL (8.4-10.2); Creatinine 1 0.59 mg/dL (0.66-1.25); Glucose 148 mg/dL (74-106); Potassium 4.5 mmol/L (3.5-5.1); SGOT/AST 20 U/L (17-59); SGPT/ALT 30 U/L (0-50); SODIUM 142 mmol/L (137-145); Total Protein 6.9 g/dL (6.3-8.2)
[2017-11-04 01:17] LABS: Carbon Dioxide 39 mmol/L (22-30)
[2017-11-04 01:20] LABS: NT PRO BNP 58.5 pg/mL (0-900)
[2017-11-04 01:25] LABS: ANION GAP 13.5 MEQ/L (5-15)
[2017-11-04 01:31] LABS: INFLUENZA A NEGATIVE (NEGATIVE); INFLUENZA B NEGATIVE (NEGATIVE); RESPIRATORY SYNCTIAL VIRUS NEGATIVE (Negative)
[2017-11-04] MEDS ORDERED: PROVENTIL 2.5 MG/3 ML NEB IH ONE (01:49)
[2017-11-04 01:52] LABS: A-aADO2 246; ABG HEMOGLOBIN 14.3; ABG POTASSIUM 3.8 (3.5-5.1); ARTERIAL BLD GAS O2 SATURATION 95.6 % (95-100); ARTERIAL BLOOD GAS BASE EXCESS 10.9 (-2.0-2.0); ARTERIAL BLOOD GAS FIO2 50 %; ARTERIAL BLOOD GAS PCO2 50 mmHg (35-45); ARTERIAL BLOOD GAS pH 7.47 (7.35-7.45); CARBOXYHEMOGLOBIN 4.7 % THgb (0.0-6.9); HCO3- 36.4 (22-28); HGB O2 SAT 90.9 g/dF (94-100); Methhemoglobin 0.2 % (1.4-1.5); paO2 pAO1 0.16
[2017-11-04] MEDS: DUONEB 0.5-3 MG/3 ml Neb IH ONE ×2 (01:52→02:00)
[2017-11-04 01:53] LABS: ABG SITE RIGHT RADIAL; ARTERIAL BLOOD GAS PO2 48 mmHg (75-100)
[2017-11-04 01:54] LABS: ALLEN TEST OK? no
--- NOTE | 2017-11-04 01:58 | ERPHSYRPT ---
- History of Present Illness Time Seen by Provider: 11/04/17 01:23 Source: patient, EMS Exam Limitations: clinical condition Patient Subjective Stated Complaint: arrives to ER via EMS from home with c/o SOB was found 79% on 3L in tripod position with little to no air movement. EMS gave Duo-Neb and Albuterol neb tx en route. 98% on 8L Aerosol mask. Triage Nursing Assessment: Pt arrives in tripod position sucking air with little movement. Eyes open and tracks but does not respond with verbal. Lungs diminished with labored respirations and retraciting using accessory muscles. Placed on BiPAP upon arrival to ER and an additional Duo-Neb and Albuterol administered via Bi-PAP. Pt resp 24 with 100% on 50%FiO2. Pt now responds with verbal and is A&Ox4. Physician History: PATIENT WITH A HISTORY OF COPD, RECENTLY RELEASED FOR HOSPITAL 1 WEEK AGO, COMPLAINS OF INCREASING DYSPNEA, DIFFICULTY BREATHING AT REST. EMS FOUND PATIENT WITH LETHARGY, SHORTNESS OF BREATH, DIFFICULTY BREATHING WITH ACCESSORY MUSCLE AND LABORED BREATHING. ADMINISTERED 2 AEROSOL TREATMENTS ENROUTE TO EMERGENCY ROOM AND INTRAVENOUS SOLUMEDROL 125MG. PATIENT DENIES FEVER OR CHEST PAIN. Timing/Duration: today Activities at Onset: none Severity of Dyspnea-Max: severe Severity of Dyspnea-Current: severe Possible Cause: frequent episodes Modifying Factors: Improves With: activity Associated Symptoms: lightheadedness International travel in last 2 weeks: No Allergies/Adverse Reactions: No Known Drug Allergies Allergy (Verified 11/04/17 00:35) Home Medications: Clonazepam 1 mg PO TID PRN 10/09/17 [History] Fluticasone/Umeclidin/Vilanter [Trelegy Ellipta 100-62.5-25] 1 each IH DAILY [History] Ipratropium/Albuterol Sulfate [Combivent Inhaler] 14.7 gm IH QID 10/27/17 [ History] Hx Tetanus, Diphtheria Vaccination/Date Given: Yes Hx Influenza Vaccination/Date Given: Yes Hx Pneumococcal Vaccination/Date Given: Yes Immunizations Up to Date: Yes - Review of Systems Constitutional: No Fever, No Chills Eyes: No Symptoms Ears, Nose, & Throat: No Symptoms Respiratory: Dyspnea, Dyspnea on Exertion (GILMAN), No Cough Cardiac: No Symptoms, No Chest Pain, No Edema, No Syncope Abdominal/Gastrointestinal: No Symptoms, No Abdominal Pain, No Nausea, No Vomiting, No Diarrhea Genitourinary Symptoms: No Symptoms, No Dysuria Musculoskeletal: No Symptoms, No Back Pain, No Neck Pain Skin: No Rash Neurological: No Dizziness, No Focal Weakness, No Sensory Changes Psychological: No Symptoms Endocrine: No Symptoms All Other Systems: Reviewed and Negative - Past Medical History Pertinent Past Medical History: Yes Neurological History: No Pertinent History ENT History: No Pertinent History Cardiac History: No Pertinent History Respiratory History: Bronchitis, COPD, Emphysema, Pneumonia Endocrine Medical History: No Pertinent History Musculoskeletal History: Other GI Medical History: No Pertinent History History: No Pertinent History Psycho-Social History: Anxiety, Panic Disorder Male Reproductive Disorders: No Pertinent History Other Medical History: Lower back surgery- 19 yrs ago in [place] - Past Surgical History Past Surgical History: Yes Neuro Surgical History: No Pertinent History Cardiac: No Pertinent History Respiratory: No Pertinent History Gastrointestinal: No Pertinent History Genitourinary: No Pertinent History Musculoskeletal: No Pertinent History Male Surgical History: No Pertinent History Other Surgical History: back surgery- 19 yrs ago in [place] - Social History Smoking Status: Light tobacco smoker How long have you smoked: 56 years Exposure to second hand smoke: Yes Drug Use: none Patient Lives Alone: No - Nursing Vital Signs Nursing Vital Signs: Initial Vital Signs Pulse Rate 125 H 11/04/17 00:20 Respiratory Rate 24 11/04/17 00:20 Blood Pressure 129/89 11/04/17 00:20 O2 Sat by Pulse Oximetry 100 11/04/17 00:20 Pain Scale Pain Intensity 0 - Physical Exam General Appearance: severe distress, lethargy, other (ARRIVED TO EMERGENCY ROOM HYPOCAPNIC, LABORED BREATHING, ACCESSORY MUSCLE USE AND RETRACTIONS) Ears, Nose, Throat Exam: hearing grossly normal Neck Exam: normal inspection, supple Respiratory Exam: respiratory distress, diminished breath sounds, accessory muscle use, prolonged expirations Cardiovascular/Chest Exam: normal heart sounds, regular rate/rhythm Abdominal/Gastrointestinal Exam: soft, No tenderness, No distention, No mass Extremity Exam: non-tender, normal range of motion, normal inspection, no calf tenderness, no pedal edema Peripheral Pulses Exam: carotid (R): 2+, carotid (L): 2+, femoral (R): 2+, femoral (L): 2+, dorsalis-pedis (R): 2+, dorsalis-pedis (L): 2+ Neurologic Exam: other (LETHARGIC INITIALLY) SpO2 Interpretation: normal SpO2: 100 Oxygen Delivery: BiPap - Course EKG Interpreted by Me: RATE, Sinus Rhythm, Sinus Tach, Non-specific ST Changes - Radiology Exams Chest X-ray Interpretation: Interpreted by me, No Infiltrates (COPD, HYPERVENTILATION , FLAT DIAPHRAMS) Ordered Tests: Active Orders 24 hr Category Date Time Status Up With Assistance ROUTINE Activity 11/04/17 02:24 Ordered Lithographic Press Feeder STAT Care 11/04/17 00:26 Active Code Status Order ROUTINE Care 11/04/17 02:24 Ordered EKG-ER Only STAT Care 11/04/17 00:25 Active IV Care Q6H Care 11/04/17 02:[address] in Observation ROUTINE Care 11/04/17 02:24 Ordered Pulse Oximetry (ED) STAT Care 11/04/17 00:25 Active Don Hose, Apply ROUTINE Care 11/04/17 02:24 Ordered Vital Signs Q4H Care 11/04/17 02:24 Ordered Weight,Daily 0600 Care 11/04/17 02:24 Ordered Regular Diet Diet 11/04/17 Breakfast Ordered CHEST 1 VIEW (PORTABLE) Stat Exams 11/04/17 00:26 Taken ABG [ARTERIAL BLOOD GASES] Urgent Lab 11/04/17 01:40 Completed ARTERIAL BLOOD GASES Stat Lab 11/04/17 00:25 Completed BLOOD CULTURE Stat Lab 11/04/17 01:45 Received CBC W DIFF Stat Lab 11/04/17 00:15 Completed CMP Stat Lab 11/04/17 00:15 Completed D-DIMER QUANTITATION Stat Lab 11/04/17 00:15 Completed Lactic Acid Stat Lab 11/04/17 00:25 Completed MAGNESIUM Stat Lab 11/04/17 00:15 Completed NT PRO BNP Stat Lab 11/04/17 00:15 Completed TROPONIN Q3H Lab 11/04/17 00:30 Completed TROPONIN Q3H Lab 11/04/17 03:30 Ordered TROPONIN Q3H Lab 11/04/17 06:30 Ordered TROPONIN Q3H Lab 11/04/17 09:30 Ordered TROPONIN Q3H Lab 11/04/17 12:30 Ordered BiPap/CPAP Assessment STAT RT 11/04/17 00:25 Active Oxygen NASAL CANNULA 2 lpm RT 11/04/17 02:24 Ordered Respiratory Nebulizer Q4H RT 11/04/17 02:24 Ordered Respiratory Nebulizer STAT RT 11/04/17 00:27 Active Respiratory Nebulizer STAT RT 11/04/17 01:49 Active Respiratory Nebulizer STAT RT 11/04/17 02:27 Ordered Respiratory Therapy Consult ROUTINE RT 11/04/17 02:24 Ordered Transfer Order Routine Transfer 11/04/17 Ordered Medication Summary Generic Name Dose Route Start Last Admin Trade Name Freq PRN Reason Stop Dose Admin Sodium Chloride 1,000 mls @ 200 mls/hr 11/04/17 00:30 11/04/17 00:55 Sodium Chloride 0.9% 1000 Ml IV 12/04/17 00:29 200 mls/hr .Q5H KELSEA Administration Discontinued Medications Generic Name Dose Route Start Last Admin Trade Name Freq PRN Reason Stop Dose Admin Albuterol Sulfate 2.5 mg 11/04/17 01:49 11/04/17 01:52 Proventil 2.5 Mg/3 Ml Neb IH 11/04/17 01:50 2.5 mg STAT ONE Administration Albuterol/Ipratropium 3 ml 11/04/17 00:25 11/04/17 00:37 Duoneb 0.5-3 Mg/3 Ml Neb IH 11/04/17 00:26 3 ml STAT ONE Administration Albuterol/Ipratropium 3 ml 11/04/17 01:49 11/04/17 02:00 Duoneb 0.5-3 Mg/3 Ml Neb IH 11/04/17 01:50 Not Given STAT ONE Ceftriaxone Sodium/Dextrose 1 g in 50 mls @ 100 mls/hr 11/04/17 00:25 00:55 Rocephin 1 Gm-D5w 50 Ml Bag IV 11/04/17 00:54 100 mls/hr STAT STA Administration Azithromycin 500 mg in 250 mls @ 250 mls/hr 11/04/17 00:25 11/04/17 00:56 Zithromax 500 Mg/ 250 Ml Nacl Premix IV 11/04/17 01:24 250 mls/hr STAT STA Administration Azithromycin Confirm 11/04/17 00:42 Zithromax 500 Mg/ 250 Ml Nacl Premix Administered 11/04/17 00:43 Dose 500 mg in 250 mls @ ud IV .STK-MED ONE Ceftriaxone Sodium/Dextrose Confirm 11/04/17 00:42 Rocephin 1 Gm-D5w 50 Ml Bag Administered 11/04/17 00:43 Dose 1 g in 50 mls @ IV .STK-MED ONE Lab/Rad Data: Laboratory Result Diagrams 11/04/17 00:15 11/04/17 00:15 Laboratory Results 11/04/17 11/04/17 11/04/17 Range/Units 01:40 00:40 00:30 WBC (4.0-10.5) K/mm3 RBC (4.1-5.6) M/mm3 Hgb (12.5-18.0) gm/dl Hct (42-50) % MCV (78-100) fl MCH (26-32) pg MCHC (32-36) g/dl RDW (11.5-14.0) % Plt Count (150-450) K/mm3 MPV (6-9.5) fl Gran % (36.0-66.0) % Eos # (Auto) (0-0.5) Absolute Lymphs (auto) (1.0-4.6) Absolute Monos (auto) (0.0-1.3) Lymphocytes % (24.0-44.0) % Monocytes % (0.0-12.0) % Eosinophils % (0.00-5.0) % Basophils % (0.0-0.4) % Absolute Granulocytes (1.4-6.9) Basophils # (0-0.4) D-Dimer (215-500) ng/mL Puncture Site RIGHT RADIAL pCO2 50 H (35-45) mmHg pO2 48 L* (75-100) mmHg Base Excess 10.9 H (-2.0-2.0) O2 Saturation 90.9 L (94-100) g/dF ABG pH 7.47 H (7.35-7.45) ABG HCO3 36.4 H* (22-28) ABG O2 Sat (Measured) 95.6 (95-100) % Wilmer Test no A-a Gradient 246 a/A Ratio 0.16 Hemoglobin 14.3 Carboxyhemoglobin 4.7 (0.0-6.9) % THgb Methemoglobin 0.2 L (1.4-1.5) % Temperature 37.0 C POC O2 Flow Rate 50 % Vent Mode Inspiratory BiPAP 16 Expiratory BiPAP 8 Sodium (137-145) mmol/L Potassium 3.8 (3.5-5.1) mmol/L Chloride (98-107) mmol/L Carbon Dioxide (22-30) mmol/L Anion Gap (5-15) MEQ/L BUN (9-20) mg/dL Creatinine (0.66-1.25) mg/dL Estimated GFR ML/MIN Glucose (74-106) mg/dL Lactic Acid (0.4-2.0) Calcium (8.4-10.2) mg/dL Magnesium (1.6-2.3) mg/dL Total Bilirubin (0.2-1.3) mg/dL AST (17-59) U/L ALT (0-50) U/L Alkaline Phosphatase (38-126) U/L Troponin I < 0.012 (0.000-0.034) ng/mL NT-Pro-B Natriuret Pep (0-900) pg/mL Serum Total Protein (6.3-8.2) g/dL Albumin (3.5-5.0) g/dL Influenza Type A Ag NEGATIVE (NEGATIVE) Influenza Type B Ag NEGATIVE (NEGATIVE) RSV (PCR) NEGATIVE (Negative) 11/04/17 11/04/17 11/04/17 Range/Units 00:25 00:15 00:15 WBC (4.0-10.5) K/mm3 RBC (4.1-5.6) M/mm3 Hgb (12.5-18.0) gm/dl Hct (42-50) % MCV (78-100) fl MCH (26-32) pg MCHC (32-36) g/dl RDW (11.5-14.0) % Plt Count (150-450) K/mm3 MPV (6-9.5) fl Gran % (36.0-66.0) % Eos # (Auto) (0-0.5) Absolute Lymphs (auto) (1.0-4.6) Absolute Monos (auto) (0.0-1.3) Lymphocytes % (24.0-44.0) % Monocytes % (0.0-12.0) % Eosinophils % (0.00-5.0) % Basophils % (0.0-0.4) % Absolute Granulocytes (1.4-6.9) Basophils # (0-0.4) D-Dimer 580.44 H* (215-500) ng/mL Puncture Site LEFT BRACHIAL pCO2 119 H* (35-45) mmHg pO2 281 H* (75-100) mmHg Base Excess 9.2 H (-2.0-2.0) O2 Saturation 96.6 (94-100) g/dF ABG pH 7.17 L* (7.35-7.45) ABG HCO3 43.4 H* (22-28) ABG O2 Sat (Measured) 98.2 (95-100) % Wilmer Test NO A-a Gradient 283 a/A Ratio 0.50 Hemoglobin 15.5 Carboxyhemoglobin 1.6 (0.0-6.9) % THgb Methemoglobin 0.1 L (1.4-1.5) % Temperature 37.0 C POC O2 Flow Rate 100 % Vent Mode BiPAP Inspiratory BiPAP 16 Expiratory BiPAP 8 Sodium 142 (137-145) mmol/L Potassium 4.6 4.5 (3.5-5.1) mmol/L Chloride 94 L (98-107) mmol/L Carbon Dioxide 39 H (22-30) mmol/L Anion Gap 13.5 (5-15) MEQ/L BUN 15 (9-20) mg/dL Creatinine 0.59 L (0.66-1.25) mg/dL Estimated GFR > 60.0 ML/MIN Glucose 148 H (74-106) mg/dL Lactic Acid 0.7 (0.4-2.0) Calcium 9.3 (8.4-10.2) mg/dL Magnesium 2.3 (1.6-2.3) mg/dL Total Bilirubin 0.40 (0.2-1.3) mg/dL AST 20 (17-59) U/L ALT 30 (0-50) U/L Alkaline Phosphatase 105 (38-126) U/L Troponin I (0.000-0.034) ng/mL NT-Pro-B Natriuret Pep 58.5 (0-900) pg/mL Serum Total Protein 6.9 (6.3-8.2) g/dL Albumin 4.2 (3.5-5.0) g/dL Influenza Type A Ag (NEGATIVE) Influenza Type B Ag (NEGATIVE) RSV (PCR) (Negative) 11/04/17 Range/Units 00:15 WBC 14.2 H (4.0-10.5) K/mm3 RBC 4.70 (4.1-5.6) M/mm3 Hgb 15.3 (12.5-18.0) gm/dl Hct 47.9 (42-50) % MCV 101.9 H (78-100) fl MCH 32.6 H (26-32) pg MCHC 31.9 L (32-36) g/dl RDW 13.9 (11.5-14.0) % Plt Count 244 (150-450) K/mm3 MPV 10.2 H (6-9.5) fl Gran % 38.3 (36.0-66.0) % Eos # (Auto) 0.21 (0-0.5) Absolute Lymphs (auto) 7.35 H (1.0-4.6) Absolute Monos (auto) 1.20 (0.0-1.3) Lymphocytes % 51.7 H (24.0-44.0) % Monocytes % 8.4 (0.0-12.0) % Eosinophils % 1.5 (0.00-5.0) % Basophils % 0.1 (0.0-0.4) % Absolute Granulocytes 5.45 (1.4-6.9) Basophils # 0.01 (0-0.4) D-Dimer (215-500) ng/mL Puncture Site pCO2 (35-45) mmHg pO2 (75-100) mmHg Base Excess (-2.0-2.0) O2 Saturation (94-100) g/dF ABG pH (7.35-7.45) ABG HCO3 (22-28) ABG O2 Sat (Measured) (95-100) % Wilmer Test A-a Gradient a/A Ratio Hemoglobin Carboxyhemoglobin (0.0-6.9) % THgb Methemoglobin (1.4-1.5) % Temperature C POC O2 Flow Rate % Vent Mode Inspiratory BiPAP Expiratory BiPAP Sodium (137-145) mmol/L Potassium (3.5-5.1) mmol/L Chloride (98-107) mmol/L Carbon Dioxide (22-30) mmol/L Anion Gap (5-15) MEQ/L BUN (9-20) mg/dL Creatinine (0.66-1.25) mg/dL Estimated GFR ML/MIN Glucose (74-106) mg/dL Lactic Acid (0.4-2.0) Calcium (8.4-10.2) mg/dL Magnesium (1.6-2.3) mg/dL Total Bilirubin (0.2-1.3) mg/dL AST (17-59) U/L ALT (0-50) U/L Alkaline Phosphatase (38-126) U/L Troponin I (0.000-0.034) ng/mL NT-Pro-B Natriuret Pep (0-900) pg/mL Serum Total Protein (6.3-8.2) g/dL Albumin (3.5-5.0) g/dL Influenza Type A Ag (NEGATIVE) Influenza Type B Ag (NEGATIVE) RSV (PCR) (Negative) - Progress Progress Note: 11/04/17 02:13 PLACED ONTO BIBPAP FOR 1 HOURS CO2 IMPROVED FROM 119 TO 50. PATIENTS MENTAL STATUS IMPROVED, ALERT AND APPROPRIATE, AFTER 2 SETS OF BLOOD CULTURES ADMINISTERED ZITHROMAX 500MG AND ROCEPHIN 1GM IVPB. Blood Culture(s) Obtained: Yes Antibiotics given: Yes Discussed with : Ismael Will see patient in: hospital (observation) (AT 0200) - Departure Time of Disposition: 02:30 Departure Disposition: Observation Clinical Impression: EXACERBATION COPD, RESPIRATORY INSUFFICIENCY Condition: Stable Critical Care Time: No Referrals: MADDIE SILVA MD [Primary Care Provider] -
[2017-11-04] MEDS ORDERED: Xopenex 1.25 MG/0.5 ML UD NEBULE IH PRN (02:27)
[2017-11-04] MEDS ORDERED: KLONOPIN PO PRN (02:28)
[2017-11-04 03:20] LABS: Slide Review 1 YES
[2017-11-04] MEDS: DUONEB 0.5-3 MG/3 ml Neb IH SCH ×6 (04:01→23:23)
[2017-11-04] MEDS: solu-MEDROL 125 MG IV SCH ×4 (05:18→23:22)
[2017-11-04] MEDS: PATIENT OWN MEDICATION IH SCH (07:38)
--- NOTE | 2017-11-04 09:05 | XRAY ---
Indication: Short of breath. Comparison: October 27, 2017. Portable chest unchanged again with diffuse pulmonary emphysema. No focal infiltrate, consolidation, or large effusion. Heart is not enlarged. No new/acute findings.
--- NOTE | 2017-11-04 11:56 | PCM.HP ---
History of Present Illness - Chief Complaint Chief Complaint: c/o shortness of breath for 2 days History of Present Illness: is a 72 year old male came to ER c/o worsening shortness of breath for 2-3 days - Review of Systems Constitutional: No Fever, No Chills Eyes: No Symptoms Ears, Nose, & Throat: No Symptoms Respiratory: Cough, Orthopnea, Short Of Breath, Wheezing Cardiac: No Chest Pain, No Edema, No Syncope Abdominal/Gastrointestinal: No Abdominal Pain, No Nausea, No Vomiting, No Diarrhea Genitourinary Symptoms: No Dysuria Musculoskeletal: No Back Pain, No Neck Pain Skin: No Rash Neurological: No Dizziness, No Focal Weakness, No Sensory Changes Psychological: No Symptoms Endocrine: No Symptoms Hematologic/Lymphatic: No Symptoms Immunological/Allergic: No Symptoms Medications & Allergies Home Medications: Home Medication List Clonazepam 1 mg PO TID PRN 10/09/17 [History Confirmed 11/04/17] Fluticasone/Umeclidin/Vilanter [Trelegy Ellipta 100-62.5-25] 1 each IH DAILY [History Confirmed 11/04/17] Ipratropium/Albuterol Sulfate [Combivent Inhaler] 14.7 gm IH QID 10/27/17 [ History Confirmed 11/04/17] Levofloxacin [Levaquin] 250 mg PO DAILY #7 tablet 10/29/17 [Rx Confirmed ] Methylprednisolone [Medrol Dose Pack] 4 mg PO UD #21 tab 10/29/17 [Rx Confirmed 11/04/17] Allergies/Adverse Reactions: Allergies Allergy/AdvReac Type Severity Reaction Status Date / Time No Known Drug Allergies Allergy Verified 11/04/17 00:35 - Past Medical History Past Medical History: Yes Neurological History: No Pertinent History ENT History: No Pertinent History Cardiac History: No Pertinent History Respiratory History: Bronchitis, COPD, Emphysema, Pneumonia Endocrine Medical History: No Pertinent History Musculoskelatal History: Other GI Medical History: No Pertinent History History: No Pertinent History Pyscho-Social History: Anxiety, Panic Disorder Male Reproductive Disorders: No Pertinent History Comment: Lower back surgery- 19 yrs ago in [place] - Past Surgical History Past Surgical History: Yes Neuro Surgical History: No Pertinent History Cardiac History: No Pertinent History Respiratory Surgery: No Pertinent History GI Surgical History: No Pertinent History Genitourinary Surgical Hx: No Pertinent History Musculskeletal Surgical Hx: Other Male Surgical History: No Pertinent History Other Surgical History: back surgery- 19 yrs ago in [place] - Social History Smoking Status: Current some day smoker How long have you smoked: 56 years Exposure to second hand smoke: Yes Alcohol: None Drug Use: none - Physical Exam Vital Signs: Vital Signs - 24 hr Temp Pulse Resp BP Pulse Ox 11/04/17 11:30 97.6 F 72 18 98/49 95 11/04/17 08:19 98.8 F 97 H 20 113/55 97 11/04/17 08:00 20 11/04/17 07:02 97 H 20 97 11/04/17 04:04 98 H 25 H 96 11/04/17 04:00 97.9 F 92 H 20 106/63 96 11/04/17 03:25 97.9 F 92 H 20 106/63 96 11/04/17 02:29 100 11/04/17 01:31 100 H 24 126/69 100 11/04/17 00:20 125 H 24 129/89 100 Oxygen-Last 24 hours O2 Percentage 3 Liters = 32% O2 Percentage 3 Liters = 32% O2 Percentage 3 Liters = 32% O2 Percentage 3 Liters = 32% O2 Percentage 70% O2 Percentage 70% O2 Percentage 70% Oxygen Flowrate (L/min)-RT 3 General Appearance: no apparent distress, alert Neurologic Exam: alert, oriented x 3, cooperative, normal mood/affect, nml cerebellar function, nml station & gait, sensation nml, No motor deficits Eye Exam: PERRL/EOMI, eyes nml inspection Ears, Nose, Throat Exam: normal ENT inspection, TMs normal, pharynx normal, moist mucous membranes Neck Exam: normal inspection, non-tender, supple, full range of motion Respiratory Exam: normal breath sounds, respiratory distress, diminished breath sounds, accessory muscle use, crackles/rales, rhonchi, wheezing Cardiovascular Exam: regular rate/rhythm, normal heart sounds, normal peripheral pulses Gastrointestinal/Abdomen Exam: soft, normal bowel sounds, No tenderness, No mass Back Exam: normal inspection, normal range of motion, No CVA tenderness, No vertebral tenderness Extremity Exam: normal inspection, normal range of motion, pelvis stable Skin Exam: normal color, warm, dry, No rash Lymphatic Exam: No adenopathy Results - Labs Lab/Micro Results: Lab Results-Last 24 Hours 11/04/17 11/04/17 11/04/17 Range/Units 03:10 06:30 09:45 Troponin I < 0.012 0.037 H* 0.030 (0.000-0.034) ng/mL - Other Procedures and Tests Respiratory Therapy 11/04/17 02:24 Oxygen NASAL CANNULA 2 lpm Respiratory Nebulizer Q4H 11/04/17 05:55 Respiratory MDI UD Assessment/Plan (1) Acute respiratory failure Current Visit: No Status: Acute Qualifiers: Respiratory failure complication: hypoxia and hypercapnia Assessment & Plan: Chief Complaint Diagnosis Exacerbation COPD, Respiratory Insufficiency Allergies Allergy/AdvReac Type Severity Reaction Status Date / Time No Known Drug Allergies Allergy Verified 11/04/17 00:35 Vital Signs (Last 24 hours) Temp Pulse Resp BP Pulse Ox 11/04/17 11:30 97.6 F 72 18 98/49 95 11/04/17 08:19 98.8 F 97 H 20 113/55 97 11/04/17 08:00 20 11/04/17 07:02 97 H 20 97 11/04/17 04:04 98 H 25 H 96 11/04/17 04:00 97.9 F 92 H 20 106/63 96 11/04/17 03:25 97.9 F 92 H 20 106/63 96 11/04/17 02:29 100 11/04/17 01:31 100 H 24 126/69 100 11/04/17 00:20 125 H 24 129/89 100 Current Medications Generic Name Dose Route Start Last Admin Trade Name Freq PRN Reason Stop Dose Admin Albuterol/Ipratropium 3 ml 11/04/17 03:00 11/04/17 06:57 Duoneb 0.5-3 Mg/3 Ml Neb IH 12/04/17 02:59 3 ml Q4HRT KELSEA Administration Clonazepam 1 mg 11/04/17 07:07 Klonopin 0.5 Mg PO 12/04/17 07:06 TID PRN PRN ANXIETY Azithromycin 500 mg in 250 mls @ 250 mls/hr 11/04/17 22:00 Zithromax 500 Mg/ 250 Ml Nacl Premix IV 12/04/17 21:59 Q24H22 KELSEA Ceftriaxone Sodium/Dextrose 1 g in 50 mls @ 100 mls/hr 11/04/17 22:00 Rocephin 1 Gm-D5w 50 Ml Bag IV 12/04/17 21:59 Q24H22 KELSEA Sodium Chloride 1,000 mls @ 50 mls/hr 11/04/17 02:30 Sodium Chloride 0.9% 1000 Ml IV 12/04/17 02:29 .Q20H KELSEA Levalbuterol HCl 1.25 mg 11/04/17 02:27 Xopenex 1.25 Mg/0.5 Ml Ud Nebule IH 12/04/17 02:26 Q2HPRN PRN DIFFICULTY BREATHING Methylprednisolone Sodium Succinate 80 mg 11/04/17 06:00 11/04/17 05:18 Solu-Medrol 125 Mg IV 12/04/17 05:59 80 mg Q6HT KELSEA Administration Patient Own Med : 0 each 11/04/17 10:00 11/04/17 07:38 Trelogy Aly 12/04/17 09:59 1 each Inhaler DAILY KELSEA Administration Discontinued Medications Generic Name Dose Route Start Last Admin Trade Name Freq PRN Reason Stop Dose Admin Albuterol Sulfate 2.5 mg 11/04/17 01:49 11/04/17 01:52 Proventil 2.5 Mg/3 Ml Neb 11/04/17 01:50 2.5 mg STAT ONE Administration Albuterol/Ipratropium 3 ml 11/04/17 00:25 11/04/17 00:37 Duoneb 0.5-3 Mg/3 Ml Neb 11/04/17 00:26 3 ml STAT ONE Administration Albuterol/Ipratropium 3 ml 11/04/17 01:49 11/04/17 02:00 Duoneb 0.5-3 Mg/3 Ml Neb IH 11/04/17 01:50 Not Given STAT ONE Clonazepam 1 mg 11/04/17 02:28 Klonopin PO 12/04/17 09:59 TID PRN ANXIETY Ceftriaxone Sodium/Dextrose 1 g in 50 mls @ 100 mls/hr 11/04/17 00:25 00:55 Rocephin 1 Gm-D5w 50 Ml Bag IV 11/04/17 00:54 100 mls/hr STAT STA Administration Sodium Chloride 1,000 mls @ 200 mls/hr 11/04/17 00:30 11/04/17 00:55 Sodium Chloride 0.9% 1000 Ml IV 12/04/17 00:29 200 mls/hr .Q5H KELSEA Administration Azithromycin 500 mg in 250 mls @ 250 mls/hr 11/04/17 00:25 11/04/17 00:56 Zithromax 500 Mg/ 250 Ml Nacl Premix IV 11/04/17 01:24 250 mls/hr STAT STA Administration Azithromycin Confirm 11/04/17 00:42 Zithromax 500 Mg/ 250 Ml Nacl Premix Administered 11/04/17 00:43 Dose 500 mg in 250 mls @ ud IV .STK-MED ONE Ceftriaxone Sodium/Dextrose Confirm 11/04/17 00:42 Rocephin 1 Gm-D5w 50 Ml Bag Administered 11/04/17 00:43 Dose 1 g in 50 mls @ ud IV .STK-MED ONE Sodium Chloride Confirm 11/04/17 00:42 Sodium Chloride 0.9% 1000 Ml Administered 11/04/17 00:43 Dose 1,000 mls @ ud .ROUTE .STK-MED ONE Intake & Output (Last 24 hours) 11/01/17 11/02/17 11/03/17 11/04/17 11:59 11:59 11:59 11:59 Intake Total 120 Balance 120 Weight 56.6 kg Microbiology Results (Last 24 hours) 11/04/17 01:45 Blood Blood Culture Gram Stain - Pending 11/04/17 01:45 Blood Blood Culture - Pending 11/04/17 00:15 Blood Blood Culture Gram Stain - Pending 11/04/17 00:15 Blood Blood Culture - Pending Laboratory Results (Last 24 hours) 11/04/17 11/04/17 11/04/17 09:45 06:30 03:10 WBC RBC Hgb Hct MCV MCH MCHC RDW Plt Count MPV Gran % Eos # (Auto) Absolute Lymphs (auto) Absolute Monos (auto) Lymphocytes % Monocytes % Eosinophils % Basophils % Absolute Granulocytes Basophils # D-Dimer Puncture Site pCO2 pO2 Base Excess O2 Saturation ABG pH ABG HCO3 ABG O2 Sat (Measured) Wilmer Test A-a Gradient a/A Ratio Hemoglobin Carboxyhemoglobin Methemoglobin Temperature POC O2 Flow Rate Vent Mode Inspiratory BiPAP Expiratory BiPAP Sodium Potassium Chloride Carbon Dioxide Anion Gap BUN Creatinine Estimated GFR Glucose Lactic Acid Calcium Magnesium Total Bilirubin AST ALT Alkaline Phosphatase Troponin I 0.030 0.037 H* < 0.012 NT-Pro-B Natriuret Pep Serum Total Protein Albumin Influenza Type A Ag Influenza Type B Ag RSV (PCR) Slides for Path Review 11/04/17 11/04/17 11/04/17 01:40 00:40 00:30 WBC RBC Hgb Hct MCV MCH MCHC RDW Plt Count MPV Gran % Eos # (Auto) Absolute Lymphs (auto) Absolute Monos (auto) Lymphocytes % Monocytes % Eosinophils % Basophils % Absolute Granulocytes Basophils # D-Dimer Puncture Site RIGHT RADIAL pCO2 50 H pO2 48 L* Base Excess 10.9 H O2 Saturation 90.9 L ABG pH 7.47 H ABG HCO3 36.4 H* ABG O2 Sat (Measured) 95.6 Wilmer Test no A-a Gradient 246 a/A Ratio 0.16 Hemoglobin 14.3 Carboxyhemoglobin 4.7 Methemoglobin 0.2 L Temperature 37.0 POC O2 Flow Rate 50 Vent Mode Inspiratory BiPAP 16 Expiratory BiPAP 8 Sodium Potassium 3.8 Chloride Carbon Dioxide Anion Gap BUN Creatinine Estimated GFR Glucose Lactic Acid Calcium Magnesium Total Bilirubin AST ALT Alkaline Phosphatase Troponin I < 0.012 NT-Pro-B Natriuret Pep Serum Total Protein Albumin Influenza Type A Ag NEGATIVE Influenza Type B Ag NEGATIVE RSV (PCR) NEGATIVE Slides for Path Review 11/04/17 11/04/17 11/04/17 00:25 00:15 00:15 WBC RBC Hgb Hct MCV MCH MCHC RDW Plt Count MPV Gran % Eos # (Auto) Absolute Lymphs (auto) Absolute Monos (auto) Lymphocytes % Monocytes % Eosinophils % Basophils % Absolute Granulocytes Basophils # D-Dimer 580.44 H* Puncture Site LEFT BRACHIAL pCO2 119 H* pO2 281 H* Base Excess 9.2 H O2 Saturation 96.6 ABG pH 7.17 L* ABG HCO3 43.4 H* ABG O2 Sat (Measured) 98.2 Wilmer Test NO A-a Gradient 283 a/A Ratio 0.50 Hemoglobin 15.5 Carboxyhemoglobin 1.6 Methemoglobin 0.1 L Temperature 37.0 POC O2 Flow Rate 100 Vent Mode BiPAP Inspiratory BiPAP 16 Expiratory BiPAP 8 Sodium 142 Potassium 4.6 4.5 Chloride 94 L Carbon Dioxide 39 H Anion Gap 13.5 BUN 15 Creatinine 0.59 L Estimated GFR > 60.0 Glucose 148 H Lactic Acid 0.7 Calcium 9.3 Magnesium 2.3 Total Bilirubin 0.40 AST 20 ALT 30 Alkaline Phosphatase 105 Troponin I NT-Pro-B Natriuret Pep 58.5 Serum Total Protein 6.9 Albumin 4.2 Influenza Type A Ag Influenza Type B Ag RSV (PCR) Slides for Path Review 11/04/17 00:15 WBC 14.2 H RBC 4.70 Hgb 15.3 Hct 47.9 MCV 101.9 H MCH 32.6 H MCHC 31.9 L RDW 13.9 Plt Count 244 MPV 10.2 H Gran % 38.3 Eos # (Auto) 0.21 Absolute Lymphs (auto) 7.35 H Absolute Monos (auto) 1.20 Lymphocytes % 51.7 H Monocytes % 8.4 Eosinophils % 1.5 Basophils % 0.1 Absolute Granulocytes 5.45 Basophils # 0.01 D-Dimer Puncture Site pCO2 pO2 Base Excess O2 Saturation ABG pH ABG HCO3 ABG O2 Sat (Measured) Wilmer Test A-a Gradient a/A Ratio Hemoglobin Carboxyhemoglobin Methemoglobin Temperature POC O2 Flow Rate Vent Mode Inspiratory BiPAP Expiratory BiPAP Sodium Potassium Chloride Carbon Dioxide Anion Gap BUN Creatinine Estimated GFR Glucose Lactic Acid Calcium Magnesium Total Bilirubin AST ALT Alkaline Phosphatase Troponin I NT-Pro-B Natriuret Pep Serum Total Protein Albumin Influenza Type A Ag Influenza Type B Ag RSV (PCR) Slides for Path Review YES Orders (Last 24 hours) Category Date Time Status Up With Assistance ROUTINE Activity 11/04/17 02:24 Active Mechanical Spreader Operator STAT Care 11/04/17 00:26 Active Code Status Order ROUTINE Care 11/04/17 02:24 Active EKG-ER Only STAT Care 11/04/17 00:25 Completed IV Care Q6H Care 11/04/17 02:[address] in Observation ROUTINE Care 11/04/17 02:24 Active Pulse Oximetry (ED) STAT Care 11/04/17 00:25 Active Oscar Hines ROUTINE Care 11/04/17 02:24 Active Vital Signs Q4H Care 11/04/17 02:24 Active Weight,Daily 0600 Care 11/04/17 02:24 Active Regular Diet Diet 11/04/17 Breakfast Active CHEST 1 VIEW (PORTABLE) Stat Exams 11/04/17 00:26 Completed ABG [ARTERIAL BLOOD GASES] Urgent Lab 11/04/17 01:40 Completed ARTERIAL BLOOD GASES Stat Lab 11/04/17 00:25 Completed BLOOD CULTURE Stat Lab 11/04/17 01:45 Received CBC W DIFF Stat Lab 11/04/17 00:15 Completed CMP Stat Lab 11/04/17 00:15 Completed D-DIMER QUANTITATION Stat Lab 11/04/17 00:15 Completed Lactic Acid Stat Lab 11/04/17 00:25 Completed MAGNESIUM Stat Lab 11/04/17 00:15 Completed NT PRO BNP Stat Lab 11/04/17 00:15 Completed Respiratory Panel Stat Lab 11/04/17 00:40 Completed TROPONIN Q3H Lab 11/04/17 00:30 Completed TROPONIN Q3H Lab 11/04/17 03:10 Completed TROPONIN Q3H Lab 11/04/17 06:30 Completed TROPONIN Q3H Lab 11/04/17 09:45 Completed TROPONIN Q3H Lab 11/04/17 12:30 Ordered TROPONIN Urgent Lab 11/04/17 16:30 Ordered TROPONIN Urgent Lab 11/04/17 20:30 Stop Req Albuterol 2.5 mg/3 ml Neb [Proventil 2.5 mg/3 ml Neb Med 11/04/17 01:49 Discontinued ] 2.5 mg IH STAT ONE Albuterol/Ipratropium 3ml Neb* [DUONEB 0.5-3 MG/3 ml Med 11/04/17 03:00 Active Neb] 3 ml IH Q4HRT Albuterol/Ipratropium 3ml Neb* [DUONEB 0.5-3 MG/3 ml Med 11/04/17 00:25 Discontinued Neb] 3 ml IH STAT ONE Albuterol/Ipratropium 3ml Neb* [DUONEB 0.5-3 MG/3 ml Med 11/04/17 01:49 Discontinued Neb] 3 ml IH STAT ONE Azithromycin 500 mg/250 ml [Zithromax 500 MG/ 250 ML Med 11/04/17 22:00 Active NaCl Premix] 500 mg in 250 ml IV Q24H22 Azithromycin 500 mg/250 ml [Zithromax 500 MG/ 250 ML Med 11/04/17 00:25 Discontinued NaCl Premix] 500 mg in 250 ml IV STAT Azithromycin 500 mg/250 ml [Zithromax 500 MG/ 250 ML Med 11/04/17 00:42 Discontinued NaCl Premix] 500 mg in 250 ml IV UD Ceftriaxone 1 GM/50 ML PREMIX* [ROCEPHIN 1 Gm-D5w 50 ml Med 11/04/17 22:00 Active Bag] 1 g in 50 ml IV Q24H22 Ceftriaxone 1 GM/50 ML PREMIX* [ROCEPHIN 1 Gm-D5w 50 ml Med 11/04/17 00:25 Discontinued Bag] 1 g in 50 ml IV STAT Ceftriaxone 1 GM/50 ML PREMIX* [ROCEPHIN 1 Gm-D5w 50 ml Med 11/04/17 00:42 Discontinued Bag] 1 g in 50 ml IV UD Clonazepam 0.5 mg [Klonopin 0.5 MG] Med 11/04/17 07:07 Active 1 mg PO TID PRN PRN Clonazepam [Klonopin] Med 11/04/17 02:28 Discontinued 1 mg PO TID PRN Levalbuterol HCl 1.25 MG/0.5M* [Xopenex 1.25 MG/0.5 ML Med 11/04/17 02:27 Active UD NEBULE] 1.25 mg IH Q2HPRN PRN Methylprednis Sod Succ 125 mg* [solu-MEDROL 125 MG] Med 11/04/17 06:00 Active 80 mg IV Q6HT NaCl 0.9% 1000 ml [Sodium Chloride 0.9% 1000 ML] 1,000 Med 11/04/17 00:42 Discontinued ml .ROUTE UD NaCl 0.9% 1000 ml [Sodium Chloride 0.9% 1000 ML] 1,000 Med 11/04/17 00:30 Discontinued ml IV 200 mls/hr NaCl 0.9% 1000 ml [Sodium Chloride 0.9% 1000 ML] 1,000 Med 11/04/17 02:30 Active ml IV 50 mls/hr Patient Own Med [Patient Own Medication] Med 11/04/17 10:00 Active See Dose Instructions IH DAILY BiPap/CPAP Assessment ROUTINE RT 11/04/17 00:25 Active Oxygen NASAL CANNULA 2 lpm RT 11/04/17 02:24 Active Respiratory MDI UD RT 11/04/17 05:55 Active Respiratory Nebulizer Q4H RT 11/04/17 02:24 Active Respiratory Nebulizer STAT RT 11/04/17 00:27 Completed Respiratory Nebulizer STAT RT 11/04/17 01:49 Completed Respiratory Therapy Consult ROUTINE RT 11/04/17 02:24 Completed Transfer Order Routine Transfer 11/04/17 Completed Patient Care Notes (Last 24 hours) 11/04/17 07:33 Nursing Note by Rosa Patton critical ctni called to dr. blanco. new order obtained for ctni q4h x3. 2 CTNIs already ordered from er. this nurse entered another. will discuss with dr. blanco when he make rounds for further instruction Initialized on 11/04/17 07:33 - END OF NOTE Code(s): J96.00 - ACUTE RESPIRATORY FAILURE, UNSP W HYPOXIA OR HYPERCAPNIA (2) COPD exacerbation Current Visit: No Status: Acute Code(s): J44.1 - CHRONIC OBSTRUCTIVE PULMONARY DISEASE W (ACUTE) EXACERBATION
[2017-11-04] MEDS: Sodium Chloride 0.9% 1000 ML 1,000 ML IV SCH (14:06)
[2017-11-04] MEDS: ROCEPHIN 1 Gm-D5w 50 ml Bag** 1 G/50 ML IVPB IV SCH (22:00)
[2017-11-04] MEDS: Zithromax 500 MG/ 250 ML NaCl Premix 500 MG/250 ML IVPB IV SCH (23:22)
[2017-11-05] MEDS: DUONEB 0.5-3 MG/3 ml Neb IH SCH ×5 (03:26→19:16)
[2017-11-05] MEDS: solu-MEDROL 125 MG IV SCH ×3 (05:41→17:43)
[2017-11-05] MEDS: PATIENT OWN MEDICATION IH SCH (07:45)
[2017-11-05] MEDS: Sodium Chloride 0.9% 1000 ML 1,000 ML IV SCH (12:07)
[2017-11-05] MEDS: Klonopin 0.5 MG PO PRN (14:28)
[2017-11-05] MEDS: ENOXAPARIN SODIUM SQ SCH (17:43)
[2017-11-05 17:49] LABS: A-aADO2 70; ABG HEMOGLOBIN 12.8; ABG SITE LEFT BRACHIAL; ARTERIAL BLD GAS O2 SATURATION 96.7 % (95-100); ARTERIAL BLOOD GAS BASE EXCESS 5.9 (-2.0-2.0); ARTERIAL BLOOD GAS FIO2 32 %; ARTERIAL BLOOD GAS PCO2 55 mmHg (35-45); ARTERIAL BLOOD GAS PO2 89 mmHg (75-100); ARTERIAL BLOOD GAS pH 7.38 (7.35-7.45); CARBOXYHEMOGLOBIN 0.3 % THgb (0.0-6.9); HCO3- 32.5 (22-28); Methhemoglobin 0.4 % (1.4-1.5); paO2 pAO1 0.56
[2017-11-05 17:52] LABS: Lactic Acid 4.5 (0.4-2.0)
[2017-11-05 21:36] LABS: Lactic Acid 2.6 (0.4-2.0)
[2017-11-06] MEDS: solu-MEDROL 125 MG IV SCH ×4 (00:02→17:32)
[2017-11-06] MEDS: Zithromax 500 MG/ 250 ML NaCl Premix 500 MG/250 ML IVPB IV SCH (00:02)
[2017-11-06] MEDS: ROCEPHIN 1 Gm-D5w 50 ml Bag** 1 G/50 ML IVPB IV SCH ×2 (00:02→22:38)
[2017-11-06] MEDS: DUONEB 0.5-3 MG/3 ml Neb IH SCH ×8 (03:54→22:54)
[2017-11-06] MEDS ORDERED: ENOXAPARIN SODIUM SQ ONE (07:18)
[2017-11-06] MEDS: ENOXAPARIN SODIUM SQ SCH ×2 (07:31→17:32)
--- NOTE | 2017-11-06 08:32 | XRAY ---
Indication: Chest pain and short of breath. Elevated d-dimer. Multiple contiguous axial images obtained through the chest using 80 cc Isovue 370 contrast and PE protocol. Comparison: October 10, 2017. There is poor opacification of the pulmonary arteries limiting evaluation for pulmonary embolus. distribution engineering technologist reports leak at IV site during injection. No large central pulmonary embolus. Heart is not enlarged. Aorta remains mildly arteriosclerotic without aneurysm. Stable tiny subcarinal calcified node. No pathologic mediastinal/hilar lymphadenopathy. Examination of the lung parenchyma again demonstrates diffuse pulmonary emphysema, minimal scattered fibrosis/scarring, and tiny right lower lobe calcified granuloma. No suspicious pulmonary mass, infiltrate, or effusion. Bony thorax again demonstrate mild degenerative changes throughout the spine. Limited upper abdomen unremarkable. Impression: 1. Poor opacification of the pulmonary arteries limiting evaluation for pulmonary embolus. No large central pulmonary embolus. 2. Stable pulmonary emphysema and evidence for old granulomatous disease. 3. No new/acute cardiopulmonary abnormalities. Comment: Preliminary interpretation was made by [facility]. No critical discrepancy. CTDI 12.07
[2017-11-06] MEDS: PATIENT OWN MEDICATION IH SCH (09:36)
[2017-11-06] MEDS: Klonopin 0.5 MG PO PRN ×2 (09:39→15:01)
[2017-11-06] MEDS: Sodium Chloride 0.9% 1000 ML 1,000 ML IV SCH (11:55)
--- NOTE | 2017-11-06 21:09 | XRAY ---
Indication: Elevated d-dimer. Two-dimensional sonogram and color Doppler imaging of the major venous vessels of the left and right leg was performed. Comparison: None No thrombus seen in the examined deep venous vessels of the left and right leg including greater saphenous veins. Veins demonstrate normal compressibility. Venous waveforms are normal with and without augmentation. Impression: Left and right legs negative for DVT. Comment: Preliminary report was given.
[2017-11-07] MEDS: solu-MEDROL 125 MG IV SCH ×2 (00:12→06:10)
[2017-11-07] MEDS: Zithromax 500 MG/ 250 ML NaCl Premix 500 MG/250 ML IVPB IV SCH (00:12)
[2017-11-07] MEDS: DUONEB 0.5-3 MG/3 ml Neb IH SCH ×4 (03:27→14:48)
[2017-11-07] MEDS: ENOXAPARIN SODIUM SQ SCH (06:55)
[2017-11-07] MEDS: PATIENT OWN MEDICATION IH SCH (06:56)
[2017-11-07 09:43] LABS: Granulocyte Absolute (ANC) 9.25 (1.4-6.9); Hematocrit 36.3 % (42-50); Hemoglobin 12.2 gm/dl (12.5-18.0); Mean Cell Volume 99.5 fl (78-100); Mean Corpuscular Hemoglobin 33.4 pg (26-32); Mean Corpuscular Hgb Concent. 33.6 g/dl (32-36); Mean Platelet Volume 10.4 fl (6-9.5); Platelet Count 176 K/mm3 (150-450); Red Blood Count 3.65 M/mm3 (4.1-5.6); Red Cell Distribution Width 14.1 % (11.5-14.0); White Blood Count 10.1 K/mm3 (4.0-10.5)
--- NOTE | 2017-11-07 09:49 | PROG NOTE ---
DATE: 11/05/2017 Chart is reviewed and events noted. The patient had episode of increased shortness of breath this morning while trying to get up in a hurry. He was placed BiPAP briefly and is now back on nasal cannula. At the time of this evaluation he is alert, awake comfortable. He states his breathing is somewhat improved. He states he did not sleep well last night due to watching television. He denies chest pain. He complains of occasional cough. Appears comfortable. PHYSICAL EXAMINATION: VITAL SIGNS: Blood pressure 134/71, heart rate 104, respiratory rate 18, temperature 98.3F. Oxygen saturation 98%. HEENT: No pallor or icterus is noted. NECK: No JVD is present. CVS: S1, S2 present. RESPIRATORY: Breath sounds are bilaterally diminished. ABDOMEN: Soft, nontender. NEURO: He is alert, awake, answers simple questions. EXTREMITIES: No edema on bilateral lower extremities. LABORATORY DATA AND TESTS: There were no new labs today. Labs from yesterday were reviewed. Medications were reviewed. ASSESSMENT: A 72 year old male with impression: 1) Chronic obstructive pulmonary disease with exacerbation. 2) Acute bronchopneumonia. 3) Status post acute respiratory failure. 4) Elevated D-dimer. 5) Anxiety. PLAN: Continue supplemental oxygen, nebulization, IV steroids, broad spectrum IV antibiotics. Will place on anticoagulation treatment with Lovenox. The patient does not wish to have any treatment for his difficulty sleeping at this time. Will obtain work up for elevated D-dimer. The patient's clinical condition, work-up results and plan of management as outlined were discussed with patient and family. They seem to be in understanding and agreement. Discussed with patient's nurse, Nelda.
[2017-11-07] MEDS ORDERED: ENOXAPARIN SODIUM SQ SCH (10:00)
[2017-11-07] MEDS: Klonopin 0.5 MG PO PRN (10:07)
[2017-11-07 10:26] LABS: ANION GAP 7.6 MEQ/L (5-15); BLOOD UREA NITROGEN 16 mg/dL (9-20); CHLORIDE 99 mmol/L (98-107); Calcium 8.7 mg/dL (8.4-10.2); Carbon Dioxide 37 mmol/L (22-30); Creatinine 1 0.55 mg/dL (0.66-1.25); Glucose 306 mg/dL (74-106); Lymphocytes 4 % (24-44); Monocyte 2 % (0.0-12.0); Neutrophils 94 % (36.-66.); Potassium 4.3 mmol/L (3.5-5.1); SODIUM 139 mmol/L (137-145); Total Cells Counted 100
[2017-11-07 10:27] LABS: Platelet Estimate NORMAL (NORMAL)
--- NOTE | 2017-11-07 10:55 | PROG NOTE ---
DATE: 11/06/2017 Chart is reviewed and events noted. The patient underwent CT chest yesterday reportedly there was some leakage of dye left forearm. At the time of this evaluation the patient is alert, awake. He states that shortness of breath has improved. He denied chest pain. He denied increased cough. He denied any other complaints. PHYSICAL EXAMINATION: VITAL SIGNS: Blood pressure 120/60, heart rate 89, respiratory rate 20, temperature 97.6F. Oxygen saturation 98% on 3 liters. HEENT: No pallor or icterus is noted. NECK: No JVD is present. CVS: S1, S2 present. RESPIRATORY: Breath sounds are bilaterally diminished, clear to auscultation. ABDOMEN: Soft, nontender. NEURO: He is alert, awake, answers simple questions. EXTREMITIES: No edema on bilateral lower extremities. No tenderness or increased area of swelling was noted on left forearm (area pointed by patient where he had dye). LABORATORY DATA AND TESTS: Labs from 11/05/2017 showed ABG with pH of 7.38, pCO2 55, pO2 89. Blood cultures from 11/04/2017 have shown no growth. CT chest from 11/05/2017 showed poor opacification of pulmonary artery, limited evaluation for pulmonary embolism, however no large pulmonary embolism, stable pulmonary emphysema, no new or acute cardiopulmonary abnormalities. Medications were reviewed. ASSESSMENT: A 72 year old male with impression: 1) Chronic obstructive pulmonary disease with exacerbation, clinically improving. 2) Acute bronchopneumonia. 3) Elevated D-dimer 4) History of anxiety. PLAN: Continue broad spectrum IV antibiotics. Taper steroids as tolerated. Pulmonary consult. Continue full dose anticoagulation for now. Will follow up with venous Doppler. Ambulation as tolerated. Continue to monitor area of dye leakage localized. Nursing advised to call immediately if any changes noted. The patient's clinical condition, work-up results and plan of management as outlined was discussed with him. He seems to be in understanding and agreement. Discussed with the patient's nurse, Ariana.
--- NOTE | 2017-11-07 12:49 | PCM.NOTE ---
Date and Time: 11/07/17 1248 Subjective Assessment: doing better - Review of Systems Constitutional: No Fever, No Chills Eyes: No Symptoms Ears, Nose, & Throat: No Symptoms Respiratory: No Cough, No Short Of Breath Cardiac: No Chest Pain, No Edema, No Syncope Abdominal/Gastrointestinal: No Abdominal Pain, No Nausea, No Vomiting, No Diarrhea Genitourinary Symptoms: No Dysuria Musculoskeletal: No Back Pain, No Neck Pain Skin: No Rash Neurological: No Dizziness, No Focal Weakness, No Sensory Changes Psychological: No Symptoms Endocrine: No Symptoms Hematologic/Lymphatic: No Symptoms Immunological/Allergic: No Symptoms Objective Exam General Appearance: no apparent distress, alert Neurologic Exam: alert, oriented x 3, cooperative, normal mood/affect, nml cerebellar function, sensation nml, No motor deficits Skin Exam: normal color, warm, dry Eye Exam: PERRL, EOMI, eyes nml inspection Ears, Nose, Throat Exam: normal ENT inspection, pharynx normal, moist mucous membranes Neck Exam: normal inspection, non-tender, supple, full range of motion Respiratory Exam: normal breath sounds, lungs clear, No respiratory distress Cardiovascular Exam: regular rate/rhythm, normal heart sounds Gastrointestinal/Abdomen Exam: soft, No tenderness, No mass Extremity Exam: normal inspection, normal range of motion Back Exam: normal inspection, normal range of motion, No CVA tenderness, No vertebral tenderness Male Genitalia Exam: deferred Rectal Exam: deferred OBJECTIVE DATA Vital Signs: Vital Signs - 24 hr Temp Pulse Resp BP Pulse Ox 11/07/17 12:00 97.6 F 112 H 18 131/79 97 11/07/17 10:38 115 H 18 94 L 11/07/17 08:00 98.4 F 93 H 16 117/56 98 11/07/17 06:55 86 14 99 11/07/17 04:13 97.8 F 90 20 133/74 98 11/07/17 04:00 20 11/07/17 03:28 88 20 97 11/07/17 00:00 20 11/06/17 23:46 98.6 F 90 20 127/58 99 11/06/17 22:54 89 20 98 11/06/17 20:00 20 11/06/17 19:57 98.3 F 98 H 20 128/58 97 11/06/17 19:17 101 H 20 95 11/06/17 16:41 95 H 134/69 11/06/17 16:00 97.7 F 103 H 20 155/94 94 L 11/06/17 15:52 24 11/06/17 14:44 104 H 24 92 L Oxygen-Last 24 hours O2 Percentage 3 Liters = 32% O2 Percentage 3 Liters = 32% O2 Percentage 3 Liters = 32% O2 Percentage 2 Liters = 28% Pain Assessment - Last Documented Pain Intensity 0 Pain Scale Used 0-10 Pain Scale Intake and Output: Intake & Output 11/05/17 11/06/17 11/07/17 11/08/17 11:59 11:59 11:59 11:59 Intake Total 3520 2417 2816 Output Total 800 1150 1510 Balance 2720 1267 1306 Weight 55.2 kg 55.1 kg 55.3 kg Lab Results: Lab Results-Last 24 Hours 11/07/17 11/07/17 Range/Units 09:33 09:33 WBC 10.1 (4.0-10.5) K/mm3 RBC 3.65 L (4.1-5.6) M/mm3 Hgb 12.2 L (12.5-18.0) gm/dl Hct 36.3 L (42-50) % MCV 99.5 (78-100) fl MCH 33.4 H (26-32) pg MCHC 33.6 (32-36) g/dl RDW 14.1 H (11.5-14.0) % Plt Count 176 (150-450) K/mm3 MPV 10.4 H (6-9.5) fl Absolute Granulocytes 9.25 H (1.4-6.9) Segmented Neutrophils 94 H (36.-66.) % Lymphocytes (Manual) 4 L (24-44) % Monocytes (Manual) 2 (0.0-12.0) % Differential Comment NORMAL Platelet Estimate NORMAL (NORMAL) Sodium 139 (137-145) mmol/L Potassium 4.3 (3.5-5.1) mmol/L Chloride 99 (98-107) mmol/L Carbon Dioxide 37 H (22-30) mmol/L Anion Gap 7.6 (5-15) MEQ/L BUN 16 (9-20) mg/dL Creatinine 0.55 L (0.66-1.25) mg/dL Estimated GFR > 60.0 ML/MIN Glucose 306 H (74-106) mg/dL Calcium 8.7 (8.4-10.2) mg/dL Radiology Exams: Radiology Procedures Category Date Time Status CHEST WITH CONTRAST [CT] Urgent Exams 11/05/17 17:12 Completed Multi-Disciplinary Progress Notes: Multi-Disciplinary Progress Notes 11/06/17 23:06 Respiratory Note by Tyson Blevins ADDED HUMIDITY TO PT 3LPM O2. Initialized on 11/06/17 23:06 - END OF NOTE Assessment/Plan (1) Acute respiratory failure Current Visit: Yes Status: Acute Qualifiers: Respiratory failure complication: hypoxia and hypercapnia Assessment & Plan: improving Code(s): J96.00 - ACUTE RESPIRATORY FAILURE, UNSP W HYPOXIA OR HYPERCAPNIA (2) COPD exacerbation Current Visit: Yes Status: Resolved Code(s): J44.1 - CHRONIC OBSTRUCTIVE PULMONARY DISEASE W (ACUTE) EXACERBATION
[2017-11-07] MEDS: Sodium Chloride 0.9% 1000 ML 1,000 ML IV SCH (13:45)
[2017-11-07] MEDS ORDERED: solu-MEDROL 125 MG IV SCH (14:00)
[2017-11-07 16:46] VITALS: BP 124/77; PULSE 107; O2SAT 98
--- NOTE | 2017-11-08 08:00 | CONS ---
CONSULT DATE: 11/07/2017 REASON FOR CONSULTATION: HISTORY: Jensen Ribeiro is a 72 year-old male with history of chronic obstructive pulmonary disease who has been hospitalized with complaints of cough, shortness of breath and wheezing. The patient has been treated with IV antibiotics, steroids and has shown improvement. He was recently seen by Dr. Madison in outpatient setting. According to the patient's he is experiencing worsening shortness of breath for the past five years. He has been on supplemental oxygen and ambulates within the confines of his house. He unfortunately continues to smoke. The patient also has a nebulizer that he uses two to three times a day. He has fortunately not required hospitalization prior to this visit. PAST MEDICAL HISTORY: Besides chronic obstructive pulmonary disease and chronic hypoxic respiratory failure the patient has history of hypertension. He is scheduled to see Dr. Man for cardiac evaluation. He has history of anxiety as well. PAST SURGICAL HISTORY: Back surgery. 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 MEDICATIONS: At home he is on clonazepam, Trelegy and Combivent inhaler. ALLERGIES: NKDA. PHYSICAL EXAMINATION: This is an elderly male who appears fairly comfortable. The patient is able to answer questions without any respiratory distress. Vital signs noted. HEENT: Normocephalic. Pupils are reactive. Oral exam unremarkable. CVS: First and second heart sounds are normal, regular, rhythmic. RESPIRATORY: Shows diminished breath sounds, rhonchi heard. ABDOMEN: Soft. EXTREMITIES: No significant edema is noted. LABORATORY DATA AND TESTS: Sodium 139, potassium 4.3, chloride 99, bicarb 37, glucose 106, BUN 16, creatinine 0.5. White blood cell count 10.1, hemoglobin 4.2, hematocrit 36, PLT 176,000. Lactic acid 2.6. ABG pH 7.3, pCO2 55 and pO2 of 89. Blood cultures have remained negative. Troponins were negative as well. Doppler's were negative. CT showed poor opacification. No large central pulmonary embolism, stable emphysema with old granulomatous disease. ASSESSMENT: This is a 72 year old male admitted with: 1) Chronic obstructive pulmonary disease with acute exacerbation. 2) Chronic hypercapnic and hypoxic respiratory failure. 3) Acute bronchitis, resolved. 4) Nicotine addiction. 5) Anxiety. RECOMMENDATIONS: I agree with the present treatment. The patient wishes to go home. He may be discharged with outpatient follow up with Dr. Madison. Need for complete smoking cessation was stressed again. Continue bronchodilator, supplemental oxygen. Continue Trelegy. Advised not to preferably use Combivent with Trelegy given Trelegy has long lasting anti-musculophrenic agent. He may benefit from just Albuterol inhaler. Thank you for allowing me to participate in the care of Jensen Ribeiro.
== END 2017-11-07 18:00 | disposition home or self-care (01) | DRG 189 ==
LOC: ED 00:18 → MED SURG 02:55 → OBSVTOIN 12:01
PROVIDERS: ADMIT General Practice; ATTEND General Practice
DX: J96.00 Acute respiratory failure, unspecified whether with hypoxia or hypercapnia (principal); R06.89 Other abnormalities of breathing; J18.0 Bronchopneumonia, unspecified organism; J44.1 Chronic obstructive pulmonary disease with (acute) exacerbation; Z79.899 Other long term (current) drug therapy; R79.1 Abnormal coagulation profile; F41.9 Anxiety disorder, unspecified; J20.8 Acute bronchitis due to other specified organisms; Z72.0 Tobacco use; J96.12 Chronic respiratory failure with hypercapnia; J96.11 Chronic respiratory failure with hypoxia; R06.02 Shortness of breath; I10 Essential (primary) hypertension
CPT/HCPCS: 36415; 36600; 71045; 71260; 80048; 80053; 82375; 82803; 83605; 83735; 83880; 84484; 85025; 85379; 87040; 87631; 93005; 93041; 93970; 94002; 94003; 94150; 94640; 94760; 99285; J0456; J0696; J1650; J2930; A9270-GY

== ENCOUNTER 2017-12-25 20:57 | Emergency (ER) | payer MEDICARE ==
[2017-12-25] MEDS ORDERED: ROCEPHIN 1 Gm-D5w 50 ml Bag** 1 G/50 ML IVPB IV STA (21:08)
[2017-12-25] MEDS ORDERED: Zithromax 500 MG/ 250 ML NaCl Premix 500 MG/250 ML IVPB IV STA (21:08)
--- NOTE | 2017-12-25 21:08 | ERPHSYRPT ---
- History of Present Illness Time Seen by Provider: 12/25/17 21:05 Source: patient, family, EMS Exam Limitations: no limitations Physician History: pt developed SOBreath today and was brought by ambulance - no CP no Abd pain , no fever reported; hx COPD improving after ambulance Tx CO2 was 99 and ph 7.24 - BIPAP started in ER. Timing/Duration: today Severity of Dyspnea-Max: severe Severity of Dyspnea-Current: moderate Possible Cause: frequent episodes, chronic episodes Modifying Factors: Improves With: albuterol nebulizer, oxygen Associated Symptoms: constant, cough, productive cough Allergies/Adverse Reactions: No Known Drug Allergies Allergy (Verified 12/25/17 21:14) Home Medications: Clonazepam 1 mg PO TID PRN 10/09/17 [History] Fluticasone/Umeclidin/Vilanter [Trelegy Ellipta 100-62.5-25] 1 each IH DAILY [History] Ipratropium/Albuterol Sulfate [Combivent Inhaler] 14.7 gm IH QID 10/27/17 [ History] Hx Tetanus, Diphtheria Vaccination/Date Given: Yes Hx Influenza Vaccination/Date Given: Yes Hx Pneumococcal Vaccination/Date Given: Yes - Past Medical History Pertinent Past Medical History: Yes Neurological History: No Pertinent History ENT History: No Pertinent History Cardiac History: No Pertinent History Respiratory History: Bronchitis, COPD, Emphysema, Pneumonia Endocrine Medical History: No Pertinent History Musculoskeletal History: Other GI Medical History: No Pertinent History History: No Pertinent History Psycho-Social History: Anxiety, Panic Disorder Male Reproductive Disorders: No Pertinent History Other Medical History: Lower back surgery- 19 yrs ago in [place] - Past Surgical History Past Surgical History: Yes Neuro Surgical History: No Pertinent History Cardiac: No Pertinent History Respiratory: No Pertinent History Gastrointestinal: No Pertinent History Genitourinary: No Pertinent History Musculoskeletal: Other Male Surgical History: No Pertinent History Other Surgical History: back surgery- 19 yrs ago in [place] - Social History Smoking Status: Current some day smoker How long have you smoked: 56 years Exposure to second hand smoke: Yes Drug Use: none Patient Lives Alone: No - Nursing Vital Signs Nursing Vital Signs: Initial Vital Signs Pulse Rate 111 H 12/25/17 20:59 Respiratory Rate 28 H 12/25/17 20:59 Blood Pressure 200/104 12/25/17 20:59 O2 Sat by Pulse Oximetry 99 12/25/17 20:59 Pain Scale Pain Intensity 0 - Physical Exam Peripheral Pulses Exam: carotid (R): 2+, carotid (L): 2+, femoral (R): 2+, femoral (L): 2+, dorsalis-pedis (R): 2+, dorsalis-pedis (L): 2+ Neurologic Exam: alert, oriented x 3, cooperative, radiagraph operator II-XII nml as tested, normal mood/affect, nml cerebellar function, nml station & gait Skin Exam: normal color, warm, diaphoresis SpO2 Interpretation: hypoxic, ABG ordered, O2 applied, airway management int. SpO2: 99 Oxygen Delivery: BiPap - Course Nursing assessment & vital signs reviewed: Yes EKG Interpreted by Me: Sinus Tach, NORMAL AXIS, Non-specific ST Changes - Radiology Exams Chest X-ray Interpretation: Reviewed by me, Infiltrates Ordered Tests: Active Orders 24 hr Category Date Time Status CO2 Monitoring STAT Care 12/25/17 21:08 Active Conductor Orchestra STAT Care 12/25/17 21:09 Active Clean Catch Urine Specimen STAT Care 12/25/17 21:08 Active EKG-ER Only STAT Care 12/25/17 21:08 Active IV Insertion STAT Care 12/25/17 21:08 Active NPO (ED) STAT Care 12/25/17 21:08 Active Oxygen-ED Only NASAL CANNULA 6 lpm Care 12/25/17 21:08 Active Pulse Oximetry (ED) STAT Care 12/25/17 21:08 Active CHEST 1 VIEW (PORTABLE) Stat Exams 12/25/17 21:09 Taken CHEST WITH CONTRAST [CT] Stat Exams 12/25/17 22:35 Taken ARTERIAL BLOOD GASES Stat Lab 12/25/17 21:10 Completed ARTERIAL BLOOD GASES Stat Lab 12/25/17 22:17 Completed BLOOD CULTURE Stat Lab 12/25/17 21:15 Received CBC W DIFF Stat Lab 12/25/17 21:15 Completed CMP Stat Lab 12/25/17 21:15 Completed D-DIMER QUANTITATION Stat Lab 12/25/17 21:15 Completed Lactic Acid Stat Lab 12/25/17 21:10 Completed NT PRO BNP Stat Lab 12/25/17 21:15 Completed TROPONIN Q3H Lab 12/25/17 21:15 Completed TROPONIN Q3H Lab 12/26/17 00:15 Ordered TROPONIN Q3H Lab 12/26/17 03:15 Ordered TROPONIN Q3H Lab 12/26/17 06:15 Ordered TROPONIN Q3H Lab 12/26/17 09:15 Ordered UA W/RFX UR CULTURE Stat Lab 12/25/17 21:09 Uncollected BiPap/CPAP STAT RT 12/25/17 21:17 Active Medication Summary Generic Name Dose Route Start Last Admin Trade Name Freq PRN Reason Stop Dose Admin Sodium Chloride 1,000 mls @ 100 mls/hr 12/25/17 21:15 12/25/17 21:30 Sodium Chloride 0.9% 1000 Ml IV 01/24/18 21:14 100 mls/hr .Q10H KELSEA Administration Discontinued Medications Generic Name Dose Route Start Last Admin Trade Name Freq PRN Reason Stop Dose Admin Ceftriaxone Sodium/Dextrose 1 g in 50 mls @ 100 mls/hr 12/25/17 21:08 21:31 Rocephin 1 Gm-D5w 50 Ml Bag IV 12/25/17 21:37 100 mls/hr STAT STA Administration Azithromycin 500 mg in 250 mls @ 250 mls/hr 12/25/17 21:08 12/25/17 22:38 Zithromax 500 Mg/ 250 Ml Nacl Premix IV 12/25/17 22:07 250 mls/hr STAT STA Administration Azithromycin Confirm 12/25/17 21:27 Zithromax 500 Mg/ 250 Ml Nacl Premix Administered 12/25/17 21:28 Dose 500 mg in 250 mls @ ud IV .STK-MED ONE Ceftriaxone Sodium/Dextrose Confirm 12/25/17 21:28 Rocephin 1 Gm-D5w 50 Ml Bag Administered 12/25/17 21:29 Dose 1 g in 50 mls @ ud IV .STK-MED ONE Lab/Rad Data: Laboratory Result Diagrams 12/25/17 21:15 12/25/17 21:15 Laboratory Results 12/25/17 12/25/17 12/25/17 Range/Units 22:20 22:17 21:15 WBC (4.0-10.5) K/mm3 RBC (4.1-5.6) M/mm3 Hgb (12.5-18.0) gm/dl Hct (42-50) % MCV (78-100) fl MCH (26-32) pg MCHC (32-36) g/dl RDW (11.5-14.0) % Plt Count (150-450) K/mm3 MPV (6-9.5) fl Gran % (36.0-66.0) % Eos # (Auto) (0-0.5) Absolute Lymphs (auto) (1.0-4.6) Absolute Monos (auto) (0.0-1.3) Lymphocytes % (24.0-44.0) % Monocytes % (0.0-12.0) % Eosinophils % (0.00-5.0) % Basophils % (0.0-0.4) % Absolute Granulocytes (1.4-6.9) Basophils # (0-0.4) D-Dimer (215-500) ng/mL Puncture Site RIGHT BRACHIAL pCO2 88 H* (35-45) mmHg pO2 157 H* (75-100) mmHg Base Excess 10.7 H (-2.0-2.0) O2 Saturation 95.0 (94-100) g/dF ABG pH 7.28 L (7.35-7.45) ABG HCO3 41.4 H* (22-28) ABG O2 Sat (Measured) 98.7 (95-100) % Wilmer Test NOT APPLICABLE A-a Gradient 54 a/A Ratio 0.74 Hemoglobin 13.8 Carboxyhemoglobin 3.3 (0.0-6.9) % THgb Methemoglobin 0.4 L (1.4-1.5) % Potassium 3.9 (3.5-5.1) Temperature 37.0 C POC O2 Flow Rate 45 % Inspiratory BiPAP 14 Expiratory BiPAP 6 Sodium (137-145) mmol/L Chloride (98-107) mmol/L Carbon Dioxide (22-30) mmol/L Anion Gap (5-15) MEQ/L BUN (9-20) mg/dL Creatinine (0.66-1.25) mg/dL Estimated GFR ML/MIN Glucose (74-106) mg/dL Lactic Acid (0.4-2.0) Calcium (8.4-10.2) mg/dL Total Bilirubin (0.2-1.3) mg/dL AST (17-59) U/L ALT (0-50) U/L Alkaline Phosphatase (38-126) U/L Troponin I < 0.012 (0.000-0.034) ng/mL NT-Pro-B Natriuret Pep (0-900) pg/mL Serum Total Protein (6.3-8.2) g/dL Albumin (3.5-5.0) g/dL Influenza Type A Ag NEGATIVE (NEGATIVE) Influenza Type B Ag NEGATIVE (NEGATIVE) RSV (PCR) NEGATIVE (Negative) Slides for Path Review 12/25/17 12/25/17 12/25/17 Range/Units 21:15 21:15 21:15 WBC 12.4 H (4.0-10.5) K/mm3 RBC 4.36 (4.1-5.6) M/mm3 Hgb 14.1 (12.5-18.0) gm/dl Hct 45.2 (42-50) % MCV 103.7 H (78-100) fl MCH 32.3 H (26-32) pg MCHC 31.2 L (32-36) g/dl RDW 13.7 (11.5-14.0) % Plt Count 200 (150-450) K/mm3 MPV 10.4 H (6-9.5) fl Gran % 32.4 L (36.0-66.0) % Eos # (Auto) 0.57 H (0-0.5) Absolute Lymphs (auto) 6.72 H (1.0-4.6) Absolute Monos (auto) 1.05 (0.0-1.3) Lymphocytes % 54.3 H (24.0-44.0) % Monocytes % 8.5 (0.0-12.0) % Eosinophils % 4.6 (0.00-5.0) % Basophils % 0.2 (0.0-0.4) % Absolute Granulocytes 4.01 (1.4-6.9) Basophils # 0.02 (0-0.4) D-Dimer 614 H* (215-500) ng/mL Puncture Site pCO2 (35-45) mmHg pO2 (75-100) mmHg Base Excess (-2.0-2.0) O2 Saturation (94-100) g/dF ABG pH (7.35-7.45) ABG HCO3 (22-28) ABG O2 Sat (Measured) (95-100) % Wilmer Test A-a Gradient a/A Ratio Hemoglobin Carboxyhemoglobin (0.0-6.9) % THgb Methemoglobin (1.4-1.5) % Potassium 4.1 (3.5-5.1) Temperature C POC O2 Flow Rate % Inspiratory BiPAP Expiratory BiPAP Sodium 143 (137-145) mmol/L Chloride 98 (98-107) mmol/L Carbon Dioxide 38 H (22-30) mmol/L Anion Gap 11.1 (5-15) MEQ/L BUN 12 (9-20) mg/dL Creatinine 0.55 L (0.66-1.25) mg/dL Estimated GFR > 60.0 ML/MIN Glucose 158 H (74-106) mg/dL Lactic Acid (0.4-2.0) Calcium 9.3 (8.4-10.2) mg/dL Total Bilirubin 0.20 (0.2-1.3) mg/dL AST 17 (17-59) U/L ALT 9 (0-50) U/L Alkaline Phosphatase 96 (38-126) U/L Troponin I (0.000-0.034) ng/mL NT-Pro-B Natriuret Pep 38.0 (0-900) pg/mL Serum Total Protein 6.4 (6.3-8.2) g/dL Albumin 3.7 (3.5-5.0) g/dL Influenza Type A Ag (NEGATIVE) Influenza Type B Ag (NEGATIVE) RSV (PCR) (Negative) Slides for Path Review YES 12/25/17 12/25/17 Range/Units 21:10 21:10 WBC (4.0-10.5) K/mm3 RBC (4.1-5.6) M/mm3 Hgb (12.5-18.0) gm/dl Hct (42-50) % MCV (78-100) fl MCH (26-32) pg MCHC (32-36) g/dl RDW (11.5-14.0) % Plt Count (150-450) K/mm3 MPV (6-9.5) fl Gran % (36.0-66.0) % Eos # (Auto) (0-0.5) Absolute Lymphs (auto) (1.0-4.6) Absolute Monos (auto) (0.0-1.3) Lymphocytes % (24.0-44.0) % Monocytes % (0.0-12.0) % Eosinophils % (0.00-5.0) % Basophils % (0.0-0.4) % Absolute Granulocytes (1.4-6.9) Basophils # (0-0.4) D-Dimer (215-500) ng/mL Puncture Site RIGHT BRACHIAL pCO2 99 H* (35-45) mmHg pO2 81 (75-100) mmHg Base Excess 10.4 H (-2.0-2.0) O2 Saturation 91.2 L (94-100) g/dF ABG pH 7.24 L* (7.35-7.45) ABG HCO3 42.4 H* (22-28) ABG O2 Sat (Measured) 95.6 (95-100) % Wilmer Test NOT APPLICABLE A-a Gradient 109 a/A Ratio 0.43 Hemoglobin 14.5 Carboxyhemoglobin 3.9 (0.0-6.9) % THgb Methemoglobin 0.8 L (1.4-1.5) % Potassium 4.0 (3.5-5.1) Temperature 37.0 C POC O2 Flow Rate 44 % Inspiratory BiPAP Expiratory BiPAP Sodium (137-145) mmol/L Chloride (98-107) mmol/L Carbon Dioxide (22-30) mmol/L Anion Gap (5-15) MEQ/L BUN (9-20) mg/dL Creatinine (0.66-1.25) mg/dL Estimated GFR ML/MIN Glucose (74-106) mg/dL Lactic Acid 0.8 (0.4-2.0) Calcium (8.4-10.2) mg/dL Total Bilirubin (0.2-1.3) mg/dL AST (17-59) U/L ALT (0-50) U/L Alkaline Phosphatase (38-126) U/L Troponin I (0.000-0.034) ng/mL NT-Pro-B Natriuret Pep (0-900) pg/mL Serum Total Protein (6.3-8.2) g/dL Albumin (3.5-5.0) g/dL Influenza Type A Ag (NEGATIVE) Influenza Type B Ag (NEGATIVE) RSV (PCR) (Negative) Slides for Path Review - Progress Progress: improved, re-examined Air Movement: good Progress Note: 12/25/17 23:41 placed call for dispo to Dr nuñez about 20 minutes ago and awaiting response , will repage; 12/26/17 00:20 Dr. Nuñez could not accept pt due to needing a compensation specialist and therefore defferred to [facility] , this will require further time and result in delay 12/26/17 00:36 Dr. Anaya accepted pt in transfer at [facility] 12/26/17 00:38 bp now improved to 120/84 Blood Culture(s) Obtained: Yes Antibiotics given: Yes Discussed with DrAdrian: Other (Dr Anaya) Will see patient in: ED Counseled pt/family regarding: lab results, diagnosis, need for follow-up, rad results - Departure Time of Disposition: 00:38 Departure Disposition: Transfer Clinical Impression: Acute respiratory failure Condition: Critical Critical Care Time: Yes Critical Care Time(excluding separately billable procedures): 75-104 minutes ( required multiple ABG and BIPAP ) Referrals: MADDIE SILVA MD [Primary Care Provider] -
[2017-12-25] MEDS ORDERED: Sodium Chloride 0.9% 1000 ML 1,000 ML IV SCH (21:15)
[2017-12-25 21:27] LABS: A-aADO2 109; ABG HEMOGLOBIN 14.5; ARTERIAL BLD GAS O2 SATURATION 95.6 % (95-100); ARTERIAL BLOOD GAS BASE EXCESS 10.4 (-2.0-2.0); ARTERIAL BLOOD GAS FIO2 44 %; ARTERIAL BLOOD GAS PO2 81 mmHg (75-100); CARBOXYHEMOGLOBIN 3.9 % THgb (0.0-6.9); HCO3- 42.4 (22-28); HGB O2 SAT 91.2 g/dF (94-100); Methhemoglobin 0.8 % (1.4-1.5); paO2 pAO1 0.43
[2017-12-25] MEDS ORDERED: Zithromax 500 MG/ 250 ML NaCl Premix 500 MG/250 ML IVPB IV ONE (21:27)
[2017-12-25 21:28] LABS: ARTERIAL BLOOD GAS pH 7.24 (7.35-7.45)
[2017-12-25] MEDS ORDERED: Sodium Chloride 0.9% 1000 ML 1,000 ML ONE (21:28)
[2017-12-25] MEDS ORDERED: ROCEPHIN 1 Gm-D5w 50 ml Bag** 1 G/50 ML IVPB IV ONE (21:28)
[2017-12-25 21:29] LABS: ABG SITE RIGHT BRACHIAL; ARTERIAL BLOOD GAS PCO2 99 mmHg (35-45)
[2017-12-25 21:33] LABS: BASOPHIL % 0.2 % (0.0-0.4); Basophil (Absolute #) 0.02 (0-0.4); Eosinophil % 4.6 % (0.00-5.0); Eosinophil (Absolute #) 0.57 (0-0.5); Granulocyte Absolute (ANC) 4.01 (1.4-6.9); Granulocytes % 32.4 % (36.0-66.0); Hematocrit 45.2 % (42-50); Hemoglobin 14.1 gm/dl (12.5-18.0); Lymphocyte (Absolute #) 6.72 (1.0-4.6); Lymphocytes % 54.3 % (24.0-44.0); Mean Cell Volume 103.7 fl (78-100); Mean Corpuscular Hemoglobin 32.3 pg (26-32); Mean Corpuscular Hgb Concent. 31.2 g/dl (32-36); Mean Platelet Volume 10.4 fl (6-9.5); Monocyte (Absolute #) 1.05 (0.0-1.3); Monocytes % 8.5 % (0.0-12.0); Platelet Count 200 K/mm3 (150-450); Red Blood Count 4.36 M/mm3 (4.1-5.6); Red Cell Distribution Width 13.7 % (11.5-14.0); White Blood Count 12.4 K/mm3 (4.0-10.5)
[2017-12-25 21:52] LABS: ALBUMIN 3.7 g/dL (3.5-5.0); ALKALINE PHOSPHATASE 96 U/L (38-126); BLOOD UREA NITROGEN 12 mg/dL (9-20); CHLORIDE 98 mmol/L (98-107); Calcium 9.3 mg/dL (8.4-10.2); Creatinine 1 0.55 mg/dL (0.66-1.25); Glucose 158 mg/dL (74-106); Potassium 4.1 mmol/L (3.5-5.1); SGOT/AST 17 U/L (17-59); SGPT/ALT 9 U/L (0-50); SODIUM 143 mmol/L (137-145); Total Protein 6.4 g/dL (6.3-8.2)
[2017-12-25 21:58] LABS: Carbon Dioxide 38 mmol/L (22-30)
[2017-12-25 22:03] LABS: ANION GAP 11.1 MEQ/L (5-15)
[2017-12-25 22:26] LABS: A-aADO2 54; ABG HEMOGLOBIN 13.8; ABG POTASSIUM 3.9 (3.5-5.1); ARTERIAL BLD GAS O2 SATURATION 98.7 % (95-100); ARTERIAL BLOOD GAS BASE EXCESS 10.7 (-2.0-2.0); ARTERIAL BLOOD GAS FIO2 45 %; ARTERIAL BLOOD GAS PCO2 88 mmHg (35-45); ARTERIAL BLOOD GAS PO2 157 mmHg (75-100); ARTERIAL BLOOD GAS pH 7.28 (7.35-7.45); CARBOXYHEMOGLOBIN 3.3 % THgb (0.0-6.9); HCO3- 41.4 (22-28); Methhemoglobin 0.4 % (1.4-1.5); paO2 pAO1 0.74
[2017-12-25 22:27] LABS: ABG SITE RIGHT BRACHIAL
[2017-12-25 23:35] LABS: INFLUENZA A NEGATIVE (NEGATIVE); INFLUENZA B NEGATIVE (NEGATIVE); RESPIRATORY SYNCTIAL VIRUS NEGATIVE (Negative)
[2017-12-25 23:41] LABS: Slide Review 1 YES
[2017-12-26 00:46] VITALS: O2SAT 98
[2017-12-26 01:22] VITALS: BP 137/77
[2017-12-26 01:31] LABS: Appearance CLEAR (CLEAR)
[2017-12-26 01:32] LABS: Leukocyte Esterase NEGATIVE (NEGATIVE); Nitrite NEGATIVE (NEGATIVE); Specific Gravity 1.015 (1.005-1.025)
[2017-12-26 01:33] LABS: Bilirubin NEGATIVE (NEGATIVE); Blood 250 Ery/ul (0-5); Glucose NEGATIVE (NEGATIVE); Ketones SMALL (NEGATIVE); Protein,Urine Dip NEGATIVE (Negative); Urobilinogen NORMAL mg/dL (0-1)
[2017-12-26 01:34] LABS: Bacteria RARE /HPF (NEGATIVE); Epithelial Cells RARE /HPF (FEW); RBC 15-25 /HPF (0-2)
[2017-12-26 02:00] VITALS: PULSE 102
--- NOTE | 2017-12-26 07:03 | XRAY ---
Indication: Short of breath. COPD exacerbation. Comparison: November 04, 2017. Portable chest unchanged again with diffuse pulmonary emphysema. No focal infiltrate, consolidation, or large effusion. Heart and mediastinal structures within normal limits. No new/acute findings.
--- NOTE | 2017-12-26 07:08 | XRAY ---
Indication: Short of breath. COPD exacerbation. Multiple contiguous axial images obtained through the chest using 80 cc Isovue 370 contrast and PE protocol. Comparison: CT chest without contrast November 11, 2017. There is satisfactory opacification of the pulmonary arteries to include the lobar and segmental branches. No filling defect or pulmonary embolus. Heart is not enlarged. Aorta remains mildly arteriosclerotic without aneurysm/dissection. Stable tiny subcarinal calcified node. No pathologic mediastinal/hilar lymphadenopathy. Examination of the lung parenchyma again demonstrates diffuse bilateral pulmonary emphysema, bibasilar fibrosis/scarring, and right lower lobe calcified granuloma. New minimal left upper lobe interstitial opacity. No infiltrate, consolidation, or effusion. Bony thorax intact again with mild degenerative changes throughout the spine. Limited upper abdomen is unremarkable. Impression: 1. Negative pulmonary embolus. 2. New minimal left upper lobe interstitial opacity. 3. Stable pulmonary emphysema and evidence for old granulomatous disease. Comment: Preliminary interpretation was made by [facility]. No critical discrepancy. CTDI 13.33
== END 2017-12-26 01:48 | disposition short-term general hospital (02) ==
LOC: ED 20:57
DX: J96.00 Acute respiratory failure, unspecified whether with hypoxia or hypercapnia (principal); J44.1 Chronic obstructive pulmonary disease with (acute) exacerbation; Z79.899 Other long term (current) drug therapy
CPT/HCPCS: 36000; 36415; 36600; 71045; 71260; 80053; 81000; 82375; 82803; 83605; 83880; 84484; 85025; 85379; 87040; 87631; 93005; 93041; 94002; 94770; 94799; 96360; 96361; 96365; 96368; 99285; J0456; J0696

== ENCOUNTER 2018-09-20 22:45 | Emergency (ER) | payer MEDICARE ==
[2018-09-20] MEDS ORDERED: PROVENTIL 2.5 MG/3 ML NEB IH ONE ×2 (23:02→23:30)
[2018-09-20] MEDS ORDERED: Sodium Chloride 0.9% 1000 ML 1,000 ML ONE (23:08)
--- NOTE | 2018-09-20 23:08 | ERPHSYRPT ---
- History of Present Illness Time Seen by Provider: 09/20/18 23:02 Source: patient Exam Limitations: no limitations Patient Subjective Stated Complaint: SOB Triage Nursing Assessment: Patient brought into ED per EMS and transferred to bed with assist of 3. Patient A+O X 3. Patient's skin pink, warm and dry. Patient complains of SOB during rest. Lungs noted to have Rhonchi throughout. O2 95% on 3 liters per n/c. No edema present. Heart tones audible. Patient denies pain or discomfort. Physician History: This is a 73-year-old white male with history of bronchitis, COPD, emphysema, pneumonia, anxiety, panic disorder patient arrives with complaint of shortness of breath for about 3-4 months he states his been worse for the past 2 weeks he states he's had a cough which is nonproductive he has no nausea no vomiting he apparently became acutely worse short of breath prior to arrival and called the medics. Medics apparently gave the patient Solu-Medrol 125 mg IV and a DuoNeb treatment and albuterol treatment. Patient states he is feeling increasingly short of breath. He denies any chest pain Past medical history includes bronchitis, COPD, emphysema, pneumonia, anxiety, panic disorder,atrial fibrillation Past surgical history includes back surgery in the distant past. Social history positive tobacco use negative alcohol negative illicit drug use. Timing/Duration: other (short of breath for 3-4 months, worse past 2 weeks) Activities at Onset: none Severity of Dyspnea-Max: none Possible Cause: frequent episodes Modifying Factors: Improves With: albuterol inhaler Associated Symptoms: constant, cough, wheezing, No intermittent, No anxiety, No chest pain/discomfort, No edema, No fever, No insomnia, No loss of appetite, No lightheadedness, No weakness, No ankle swelling, No chills, No hemoptysis, No calf pain, No dizziness, No heaviness, No heart racing, No lightheadedness, No leg swelling, No muscle spasms feet, No muscle spasms hands, No painful breathing, No productive cough, No sweating, No tightness, No tingling face International travel in last 2 weeks: No (cardiac) Allergies/Adverse Reactions: No Known Drug Allergies Allergy (Verified 09/20/18 22:59) Home Medications: Clonazepam 1 mg PO TID PRN 10/09/17 [History] Fluticasone/Umeclidin/Vilanter [Trelegy Ellipta 100-62.5-25] 1 each IH DAILY [History] Ipratropium/Albuterol Sulfate [Combivent Inhaler] 14.7 gm IH QID 10/27/17 [ History] Hx Tetanus, Diphtheria Vaccination/Date Given: Yes Hx Influenza Vaccination/Date Given: No Hx Pneumococcal Vaccination/Date Given: Yes Immunizations Up to Date: Yes - Review of Systems Constitutional: Fever Eyes: No Symptoms Ears, Nose, & Throat: No Symptoms Respiratory: Cough, Dyspnea, Wheezing Cardiac: No Chest Pain, No Edema, No Syncope Abdominal/Gastrointestinal: No Abdominal Pain, No Nausea, No Vomiting, No Diarrhea Genitourinary Symptoms: No Dysuria Musculoskeletal: No Back Pain, No Neck Pain Skin: No Rash Neurological: No Dizziness, No Focal Weakness, No Sensory Changes Psychological: No Symptoms Endocrine: No Symptoms All Other Systems: Reviewed and Negative - Past Medical History Pertinent Past Medical History: Yes Neurological History: No Pertinent History ENT History: No Pertinent History Cardiac History: No Pertinent History Respiratory History: Bronchitis, COPD, Emphysema, Pneumonia Endocrine Medical History: No Pertinent History Musculoskeletal History: Other GI Medical History: No Pertinent History History: No Pertinent History Psycho-Social History: Anxiety, Panic Disorder Male Reproductive Disorders: No Pertinent History Other Medical History: Lower back surgery- 19 yrs ago in [place] - Past Surgical History Past Surgical History: Yes Neuro Surgical History: No Pertinent History Cardiac: No Pertinent History Respiratory: No Pertinent History Gastrointestinal: No Pertinent History Genitourinary: No Pertinent History Musculoskeletal: Other Male Surgical History: No Pertinent History Other Surgical History: back surgery- 19 yrs ago in [place] - Social History Smoking Status: Current every day smoker How long have you smoked: 54 years Exposure to second hand smoke: Yes Drug Use: none Patient Lives Alone: No - Nursing Vital Signs Nursing Vital Signs: Initial Vital Signs Temperature 98.2 F 09/20/18 22:49 Pulse Rate 110 H 09/20/18 22:49 Respiratory Rate 18 09/20/18 22:49 Blood Pressure 178/90 09/20/18 22:49 O2 Sat by Pulse Oximetry 99 09/20/18 22:49 Pain Scale Pain Intensity 0 - Physical Exam General Appearance: moderate distress, alert, anxiety Eye Exam: PERRL/EOMI Ears, Nose, Throat Exam: hearing grossly normal, normal ENT inspection, normal pharynx, No abnormal TM (R), No abnormal TM (L), No sinus pain/drainage Neck Exam: normal inspection, supple Respiratory Exam: diminished breath sounds, wheezing Cardiovascular/Chest Exam: tachycardia, other (heart irregularly irregular, tachycardic), No regular rate/rhythm, No murmur Abdominal/Gastrointestinal Exam: soft, No tenderness, No distention, No mass Extremity Exam: non-tender, normal range of motion, normal inspection, no calf tenderness, no pedal edema Peripheral Pulses Exam: dorsalis-pedis (R): 2+, dorsalis-pedis (L): 2+ Neurologic Exam: alert, oriented x 3, cooperative, rn medicare II-XII nml as tested, sensation nml, No motor deficits Skin Exam: normal color, warm, No dry SpO2 Interpretation: normal (96%) SpO2: 96 - Course Nursing assessment & vital signs reviewed: Yes EKG Interpreted by Me: RATE (110 bpm), A-fib, NORMAL AXIS, Other (EKG: Atrial fibrillation, 110 bpm, moderate amount of artifact, normal axis, no acute ST or T wave changes.) - Radiology Exams Chest X-ray Interpretation: Interpreted by me (chest x-ray: Severe COPD no pneumothorax or infiltrates) Ordered Tests: Active Orders 24 hr Category Date Time 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 Care 09/20/18 22:57 Active EKG-ER Only STAT Care 09/20/18 22:56 Active IV Insertion STAT Care 09/20/18 22:57 Active Oxygen-ED Only Nasal Cannula 3 lpm Care 09/20/18 22:57 Active Pulse Oximetry (ED) STAT Care 09/20/18 22:57 Active CHEST 1 VIEW (PORTABLE) Stat Exams 09/20/18 23:02 Taken BLOOD CULTURE Stat Lab 09/20/18 23:45 Received CBC W DIFF Stat Lab 09/20/18 23:55 Completed CMP Stat Lab 09/20/18 23:55 Completed CULTURE,SPUTUM Stat Lab 09/21/18 00:16 Ordered D-DIMER QUANTITATION Stat Lab 09/20/18 23:55 Completed NT PRO BNP Stat Lab 09/20/18 23:55 Completed PROTIME WITH INR Stat Lab 09/20/18 23:55 Completed PTT Stat Lab 09/20/18 23:55 Completed TROPONIN Q3H Lab 09/20/18 23:55 Completed TROPONIN Q3H Lab 09/21/18 02:15 Ordered TROPONIN Q3H Lab 09/21/18 05:15 Ordered TROPONIN Q3H Lab 09/21/18 08:15 Ordered TROPONIN Q3H Lab 09/21/18 11:15 Ordered VENOUS BLOOD GAS Stat Lab 09/20/18 23:02 Completed Respiratory Nebulizer STAT RT 09/20/18 23:03 Completed Respiratory Therapy Assessment DAILY RT 09/20/18 23:39 Completed Medication Summary Generic Name Dose Route Start Last Admin Trade Name Freq PRN Reason Stop Dose Admin Sodium Chloride 1,000 mls @ 100 mls/hr 09/20/18 23:15 09/21/18 00:07 Sodium Chloride 0.9% 1000 Ml IV 10/20/18 23:14 100 mls/hr .Q10H KELSEA Administration Discontinued Medications Generic Name Dose Route Start Last Admin Trade Name Freq PRN Reason Stop Dose Admin Albuterol Sulfate 2.5 mg 09/20/18 23:02 09/20/18 23:38 Proventil 2.5 Mg/3 Ml Neb IH 09/20/18 23:03 2.5 mg STAT ONE Administration Albuterol Sulfate Confirm 09/20/18 23:30 Proventil 2.5 Mg/3 Ml Neb Administered 09/20/18 23:31 Dose 2.5 mg IH .STK-MED ONE Aspirin 81 mg 09/21/18 00:46 09/21/18 00:53 Baby Aspirin 81 Mg Chew PO 09/21/18 00:47 81 mg STAT ONE Administration Aspirin Confirm 09/21/18 00:51 Baby Aspirin 81 Mg Chew Administered 09/21/18 00:52 Dose 81 mg .ROUTE .STK-MED ONE Ceftriaxone Sodium/Dextrose 1 g in 50 mls @ 100 mls/hr 09/21/18 00:37 00:54 Rocephin 1 Gm-D5w 50 Ml Bag IV 09/21/18 01:06 100 ml/hr STAT STA 100 mls/hr Administration Ceftriaxone Sodium/Dextrose Confirm 09/21/18 00:51 Rocephin 1 Gm-D5w 50 Ml Bag Administered 09/21/18 00:52 Dose 1 g in 50 mls @ ud IV .STK-MED ONE Lorazepam 0.5 mg 09/21/18 00:07 09/21/18 00:11 Ativan 2 Mg/1 Ml Vial IV 09/21/18 00:08 0.5 mg STAT ONE Administration Lorazepam Confirm 09/21/18 00:09 Ativan 2 Mg/1 Ml Vial Administered 09/21/18 00:10 Dose 2 mg .ROUTE .STK-MED ONE Lab/Rad Data: Laboratory Result Diagrams 09/20/18 23:55 09/20/18 23:55 Laboratory Results 09/21/18 09/20/18 09/20/18 Range/Units 00:02 23:55 23:55 WBC (4.0-10.5) K/mm3 RBC (4.1-5.6) M/mm3 Hgb (12.5-18.0) gm/dl Hct (42-50) % MCV (78-100) fl MCH (26-32) pg MCHC (32-36) g/dl RDW (11.5-14.0) % Plt Count (150-450) K/mm3 MPV (6-9.5) fl Gran % (36.0-66.0) % Eos # (Auto) (0-0.5) Absolute Lymphs (auto) (1.0-4.6) Absolute Monos (auto) (0.0-1.3) Lymphocytes % (24.0-44.0) % Monocytes % (0.0-12.0) % Eosinophils % (0.00-5.0) % Basophils % (0.0-0.4) % Absolute Granulocytes (1.4-6.9) Basophils # (0-0.4) PT 11.5 (8.83-12.87) SECONDS INR 0.99 (0.8-3.0) APTT 26.3 (24.1-36.1) SECONDS D-Dimer < 215 L (215-500) ng/mL pO2/FiO2 Ratio 32.0 % VBG pH 7.26 L (7.32-7.42) VBG pCO2 at Pat Temp 83 H* (42-55) mm/Hg VBG pO2 at Pat Temp 24 L (25-40) mm/Hg VBG HCO3 37.2 H* (22-28) meq/L VBG O2 Sat (Oliver) 46.0 L (95-100) VBG Base Excess 7.2 H (-2.0-2.0) VBG Hemoglobin 12.9 VBG Carboxyhemoglobin 2.4 (0.0-6.9) % T HGB POC Potassium 4.1 (3.5-5.1) Sodium (137-145) mmol/L Potassium (3.5-5.1) mmol/L Chloride (98-107) mmol/L Carbon Dioxide (22-30) mmol/L Anion Gap (5-15) MEQ/L BUN (9-20) mg/dL Creatinine (0.66-1.25) mg/dL Estimated GFR ML/MIN Glucose (74-106) mg/dL Calcium (8.4-10.2) mg/dL Total Bilirubin (0.2-1.3) mg/dL AST (17-59) U/L ALT (0-50) U/L Alkaline Phosphatase (38-126) U/L Troponin I 0.037 H* (0.000-0.034) ng/mL NT-Pro-B Natriuret Pep (0-900) pg/mL Serum Total Protein (6.3-8.2) g/dL Albumin (3.5-5.0) g/dL 09/20/18 09/20/18 Range/Units 23:55 23:55 WBC 12.8 H (4.0-10.5) K/mm3 RBC 4.15 (4.1-5.6) M/mm3 Hgb 13.1 (12.5-18.0) gm/dl Hct 42.4 (42-50) % MCV 102.2 H (78-100) fl MCH 31.6 (26-32) pg MCHC 30.9 L (32-36) g/dl RDW 14.2 H (11.5-14.0) % Plt Count 192 (150-450) K/mm3 MPV 10.3 H (6-9.5) fl Gran % 84.7 H (36.0-66.0) % Eos # (Auto) 0.02 (0-0.5) Absolute Lymphs (auto) 1.15 (1.0-4.6) Absolute Monos (auto) 0.75 (0.0-1.3) Lymphocytes % 9.0 L (24.0-44.0) % Monocytes % 5.9 (0.0-12.0) % Eosinophils % 0.2 (0.00-5.0) % Basophils % 0.2 (0.0-0.4) % Absolute Granulocytes 10.85 H (1.4-6.9) Basophils # 0.02 (0-0.4) PT (8.83-12.87) SECONDS INR (0.8-3.0) APTT (24.1-36.1) SECONDS D-Dimer (215-500) ng/mL pO2/FiO2 Ratio % VBG pH (7.32-7.42) VBG pCO2 at Pat Temp (42-55) mm/Hg VBG pO2 at Pat Temp (25-40) mm/Hg VBG HCO3 (22-28) meq/L VBG O2 Sat (Oliver) (95-100) VBG Base Excess (-2.0-2.0) VBG Hemoglobin VBG Carboxyhemoglobin (0.0-6.9) % T HGB POC Potassium (3.5-5.1) Sodium 142 (137-145) mmol/L Potassium 4.5 (3.5-5.1) mmol/L Chloride 101 (98-107) mmol/L Carbon Dioxide 37 H (22-30) mmol/L Anion Gap 9.5 (5-15) MEQ/L BUN 22 H (9-20) mg/dL Creatinine 0.71 (0.66-1.25) mg/dL Estimated GFR > 60.0 ML/MIN Glucose 106 (74-106) mg/dL Calcium 9.2 (8.4-10.2) mg/dL Total Bilirubin 0.30 (0.2-1.3) mg/dL AST 26 (17-59) U/L ALT 29 (0-50) U/L Alkaline Phosphatase 85 (38-126) U/L Troponin I (0.000-0.034) ng/mL NT-Pro-B Natriuret Pep 185 (0-900) pg/mL Serum Total Protein 6.2 L (6.3-8.2) g/dL Albumin 3.8 (3.5-5.0) g/dL - Progress Progress: improved Air Movement: fair Progress Note: 09/21/18 00:43 Patient arrives with complaint of severe shortness of breath he states this is been going on for several months and [place] worse for the past couple weeks. He arrives with complaint of severe shortness of breath he denies any chest pain. Patient with wheezing throughout his lung segal. Patient with diminished breath sounds as well patient with an EKG which shows atrial fibrillation 110 bpm normal axis no acute ST or T wave changes Initial troponin was noted to be 0.036 this is being rerun by lab has a normal procedure patient d-dimer within normal limits of less than 215 CBC White blood cell 12.8 hemoglobin 13.1 hematocrit 42.4 platelets are 192 venous gases pH 7.26 PCO2 83 chest x-ray shows severe COPD Patient is given Solu-Medrol and DuoNeb treatment prior to arrival he was given another albuterol treatment after arrival here. He states he is feeling better. Patient apparently does not do well with BiPAP according to respiratory. Family thinks that the patient is on a blood thinner but they're not really sure of Will go ahead and plan on giving patient aspirin 81 mg by mouth 1 at this point plan on transferring patient to [facility] patient apparently sees Dr. 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 Diagnosis COPD with exacerbation, hypercapnia, elevated troponin, severe shortness of breath. 09/21/18 00:54 Patient is apparently on Lety Kane 5 mg orally twice a day. I have talked with the screening nurse that [facility] one call and described the patient's condition and treatments. She states that she is going to talk with the physician for automatic acceptance. And we'll call back with the physician. 09/21/18 01:[address] Anaya at [facility] emergency room he has excepted patient for transfer. - Departure Time of Disposition: 01:15 Departure Disposition: Transfer ([facility] Dr Anaya) Clinical Impression: Shortness of breath, COPD with exacerbation, Hypercapnia, Elevated troponin Condition: Fair Critical Care Time: No Referrals: MADDIE SILVA MD [Primary Care Provider] - Instructions: Chronic Obstructive Pulmonary Disease
[2018-09-20] MEDS ORDERED: Sodium Chloride 0.9% 1000 ML 1,000 ML IV SCH (23:15)
[2018-09-21 00:03] LABS: VBG BASE EXCESS 7.2 (-2.0-2.0); VBG CARBOXYHEMOGLOBIN 2.4 % T HGB (0.0-6.9); VBG HCO3- 37.2 meq/L (22-28); VBG HEMOGLOBIN 12.9; VBG POTASSIUM 4.1 (3.5-5.1); VBG pH 7.26 (7.32-7.42)
[2018-09-21 00:06] LABS: BASOPHIL % 0.2 % (0.0-0.4); Basophil (Absolute #) 0.02 (0-0.4); Eosinophil % 0.2 % (0.00-5.0); Eosinophil (Absolute #) 0.02 (0-0.5); Granulocyte Absolute (ANC) 10.85 (1.4-6.9); Granulocytes % 84.7 % (36.0-66.0); Hematocrit 42.4 % (42-50); Hemoglobin 13.1 gm/dl (12.5-18.0); Lymphocyte (Absolute #) 1.15 (1.0-4.6); Mean Cell Volume 102.2 fl (78-100); Mean Corpuscular Hemoglobin 31.6 pg (26-32); Mean Corpuscular Hgb Concent. 30.9 g/dl (32-36); Mean Platelet Volume 10.3 fl (6-9.5); Monocyte (Absolute #) 0.75 (0.0-1.3); Monocytes % 5.9 % (0.0-12.0); Platelet Count 192 K/mm3 (150-450); Red Blood Count 4.15 M/mm3 (4.1-5.6); Red Cell Distribution Width 14.2 % (11.5-14.0); White Blood Count 12.8 K/mm3 (4.0-10.5)
[2018-09-21] MEDS ORDERED: Ativan 2 MG/1 ML VIAL IV ONE (00:07)
[2018-09-21] MEDS ORDERED: Ativan 2 MG/1 ML VIAL ONE (00:09)
[2018-09-21 00:13] LABS: INR 0.99 (0.8-3.0); PROTIME 11.5 SECONDS (8.83-12.87)
[2018-09-21 00:16] LABS: PTT 26.3 SECONDS (24.1-36.1)
[2018-09-21 00:19] LABS: D-DIMER QUANTITATION < 215 ng/mL (215-500)
[2018-09-21 00:26] LABS: ALBUMIN 3.8 g/dL (3.5-5.0); ALKALINE PHOSPHATASE 85 U/L (38-126); ANION GAP 9.5 MEQ/L (5-15); BLOOD UREA NITROGEN 22 mg/dL (9-20); CHLORIDE 101 mmol/L (98-107); Calcium 9.2 mg/dL (8.4-10.2); Carbon Dioxide 37 mmol/L (22-30); Creatinine 1 0.71 mg/dL (0.66-1.25); Glucose 106 mg/dL (74-106); NT PRO BNP 185 pg/mL (0-900); Potassium 4.5 mmol/L (3.5-5.1); SGOT/AST 26 U/L (17-59); SGPT/ALT 29 U/L (0-50); SODIUM 142 mmol/L (137-145); Total Protein 6.2 g/dL (6.3-8.2)
[2018-09-21] MEDS ORDERED: ROCEPHIN 1 Gm-D5w 50 ml Bag** 1 G/50 ML IVPB IV STA (00:37)
[2018-09-21] MEDS ORDERED: BABY ASPIRIN 81 MG CHEW PO ONE (00:46)
[2018-09-21] MEDS ORDERED: ROCEPHIN 1 Gm-D5w 50 ml Bag** 1 G/50 ML IVPB IV ONE (00:51)
[2018-09-21] MEDS ORDERED: BABY ASPIRIN 81 MG CHEW ONE (00:51)
[2018-09-21 01:35] VITALS: BP 115/66; PULSE 104; O2SAT 97
--- NOTE | 2018-09-21 08:38 | XRAY ---
Indication: Short of breath. Comparison: December 25, 2017. Portable chest unchanged again demonstrating diffuse pulmonary emphysema without focal infiltrate, consolidation, or large effusion. Heart is not enlarged. Bony thorax intact again with mild osteopenia and degenerative changes. No new/acute findings.
== END 2018-09-21 01:30 | disposition short-term general hospital (02) ==
LOC: ED 22:45
DX: R06.02 Shortness of breath (principal); J44.1 Chronic obstructive pulmonary disease with (acute) exacerbation; R06.89 Other abnormalities of breathing; R74.8 Abnormal levels of other serum enzymes; I48.91 Unspecified atrial fibrillation; F41.9 Anxiety disorder, unspecified; Z79.899 Other long term (current) drug therapy
CPT/HCPCS: 36000; 36415; 71045; 80053; 82805; 83880; 84484; 85025; 85379; 85610; 85730; 87040; 93005; 93041; 94640; 96360; 96365; 96374; 96375; 99285; J0696; J2060; J7609; A9270-GY